=== PATIENT | female | born 1955 | race Caucasian/White ===

== ENCOUNTER 2022-03-14 06:09 | Inpatient (IN) | payer MEDICARE, MEDICAID ==
[2022-03-14] VITALS (20 sets, daily range): BP systolic 86–185
[~2022-03-14] VITALS: Ht 162.6 cm; Wt 96.6 kg
[2022-03-14] MEDS ORDERED: cefTRIAXone 1 GM IVPB PREMIX 50 ML IV ONE (06:15)
--- NOTE | 2022-03-14 06:18 | NUR ---
RT at bedside.
--- NOTE | 2022-03-14 06:18 | NUR ---
PT BIBA C/O RESP DISTRESS 30 MINS PRIOR TO EMS ARRIVAL. PER MEDICS REPORT PT DESAT TO 70% AND ON MEDICS ARRIVAL STAFF WAS BEING [place]AGG[place] AT [facility] PT ON BVM ON ARRIVAL THRU TRACH. PER STAFF PT WAS VERY ANXIOUS PRIOUS TO RESP DISTRESS. PMH;CHRONIC VENT, DYSPHAGIA, GTUBE, HYPERLIPIDEMIA, ANXIETY DISORDER PT PLACED ON CARDIAC MONITORS ON ARRIVAL, SEEN AND EXAMINE BY ERMD AT BEDSIDE.
--- NOTE | 2022-03-14 06:20 | NUR ---
Patient A/Ox3, bed bound, labored breathing. Patient is visible anxious; RT at bedside providing respitory care. Patient in bed with safety procautions in place and connected to monitor. ER MD Ziegler notified.
--- NOTE | 2022-03-14 06:20 | NUR ---
# 22 gauge angiocath placed to right hand. Use of asceptic technique. Opsite placed over site. Blood return noted. Blood for lab drawn from site. Flushed with 10 cc of normal saline. No evidence of infiltration noted. Patient tolerated well.
[2022-03-14] MEDS ORDERED: ALBUTEROL SULFATE 0.083% 2.5 MG/3 ML VIAL.NEB INH ONE ×2 (06:22→06:45)
[2022-03-14 06:45] LABS: BASOPHILS % (AUTO) 0.4 % (0.0-2.0); EOSINOPHILS # (AUTO) 0.6 K/uL (0.0-0.4); EOSINOPHILS % (AUTO) 6.1 % (0.0-4.0); HEMATOCRIT 35.9 % (36-48); HEMOGLOBIN 11.3 g/dL (12.0-16.0); LYMPHOCYTES # (AUTO) 3.3 K/uL (1.0-5.5); LYMPHOCYTES % (AUTO) 34.2 % (20.5-51.5); MEAN CORPUSCULAR HEMOGLOBIN 25 pg (27-31); MEAN CORPUSCULAR HGB CONC 32 % (32-36); MEAN CORPUSCULAR VOLUME 78 fL (79.0-98.0); MONOCYTES # (AUTO) 0.5 K/uL (0.0-1.0); MONOCYTES % (AUTO) 5.2 % (1.7-9.3); NEUTROPHILS # (AUTO) 5.2 K/uL (1.8-7.7); NEUTROPHILS % (AUTO) 54.1 % (40.0-70.0); PLATELET COUNT (AUTO) 312 K/uL (130-430); RED CELL DISTRIBUTION WIDTH 18.2 % (9.0-15.0); WHITE BLOOD COUNT (AUTO) 9.7 K/uL (4.8-10.8)
[2022-03-14] MEDS ORDERED: DIPHENHYDRAMINE INJ 50 MG/ML VIAL IVP ONE (06:45)
[2022-03-14 06:48] LABS: ANION GAP 7 (5-15); CALCIUM 9.4 mg/dL (8.4-11.0); CHLORIDE 98 mmol/L (98-107); CREATININE 0.93 mg/dL (0.55-1.30); GLUCOSE 221 mg/dL (70-99); UREA NITROGEN, BLOOD 19 mg/dL (8-21)
[2022-03-14] MEDS ORDERED: LORazepam 2 MG/ML VIAL IVP ONE ×2 (07:00→07:30)
--- NOTE | 2022-03-14 07:00 | NUR ---
Patient states "I want a shot, I have too much anxiety." ER MD Ziegler notified; order given for 1mg Ativan.
[2022-03-14 07:09] LABS: ALANINE AMINOTRANSFERASE 37 U/L (12-78); ALBUMIN 3.2 g/dL (3.4-4.8); ASPARTATE AMINOTRANSFERASE 17 U/L (10-37); TOTAL BILIRUBIN 0.1 mg/dL (0.0-1.0)
--- NOTE | 2022-03-14 07:14 | NUR ---
Report given to ELLA Miranda who will assume care at this time.
--- NOTE | 2022-03-14 07:15 | NUR ---
RECEIVED PT FROM ELLA GUZMAN. ASSUMED CARE.
--- NOTE | 2022-03-14 07:29 | NUR ---
REPORTED TO DR. SALDANA PT IS DISPONDENT, DR. SALDANA ASSESSED PT AND STATED TO HOLD SECOND DOSE OF ATIVAN IVP.
[2022-03-14 07:32] LABS: GFR AFRICAN AMERICAN 77 mL/min (>90)
--- NOTE | 2022-03-14 07:40 | NUR ---
PT PLACE ON MOBILE MONITOR AND TAKEN TO CT SCAN ACCOMPAINIED BY THIS RN.
--- NOTE | 2022-03-14 07:50 | NUR ---
PT PLACED ON C/T SCAN, R/T AT BEDSIDE NOTED HR IN THE 40s. NO PULSE FELT, CODE BLUE INITIATED.
--- NOTE | 2022-03-14 07:51 | NUR ---
0751: DR. SALDANA AT BEDSIDE, PT PLACED ON DEFIBRILLATOR MONITOR, ASYSTOLE NOTED, EPINEPHERINE 1MG GIVEN, LINE FLUSHED, CPR CONTINUED. 0753: BICARB IVP GIVEN AT THIS TIME. 0754: PULSE CHECK SHOWS NO PULSE, CPR CONTINUED EPINEPHERINE 1MG IVP GIVEN AND LINE FLUSHED WITH 10ML NS. 0757: EPINEPHERINE 1MG IVP GIVEN AND LINE FLUSHED WITH 10ML NS. 0759: EPINEPHERINE 1MG IVP GIVEN AND LINE FLUSHED WITH 10ML NS. 0800: PULSE CHECK SHOWS PT IS ASYSTOLE, CPR CONTINUED. 0802: EPINEPHERINE 1MG IVP GIVEN AND LINE FLUSHED WITH 10ML NS. 0803: PULSE CHECK SHOWS PT IS ASYSTOLE, CPR CONTINUED. 0805: PULSE CHECK SHOWS RHYTHM NOTED. PT SINUS TACH HR 100.
[2022-03-14] MEDS ORDERED: iohexoL 350 mgI/mL, 100 ML INFUS..BTL IV ONE (08:13)
--- NOTE | 2022-03-14 09:03 | NUR ---
COVID AND MRSA SWABS OBTAINED AND SENT TO LAB 09:00.
[2022-03-14] MEDS ORDERED: LIDOCAINE 2%, 20 ML MDV ONE (09:13)
--- NOTE | 2022-03-14 09:30 | NUR ---
CT SCAN SHOWS BILATERAL PNEUMOTHORAX. DR. SALDANA AT BEDSIDE AND PREFORMED BILATERAL CHEST TUBE PLACEMENT, BOTH SITE CONNECTED TO CHEST TUBE UNIT WITH 20MMHG CONTINUOUS SUCTION APPLIED. CHEST TUBES SITED CLEANSED WITH CLORHEXIDINE, COVERED WITH VASELINE GAUZE , THEN OCCLUSIVE DRESSINGS PLACED. DRESSINGS CDI. DR. CUMMINGS ORDERED PT'S PEEP BE PLACED A ZERO. 2 HEMOSTATS, VASELINE GAUZE, OCCLUSIVE DRESSING, AND STERILE WATER PLACED AT BEDSIDE.
--- NOTE | 2022-03-14 10:10 | NUR ---
TRANSFERRED PATIENT TO CT. 0750 CODE BLUE CALLED. 0806 ROSC. BAG[address]ED PATIENT DURING CT PROCEDURE. 0855 TRANSFERRED PATIENT BACK TO ER. PATIENT BACK ON VENT SETTINGS WITH AC25, 300, PEEP +5, FIO2 100% PER MD SALDANA DUE TO BILATERAL PNEUMOTHORAX. SPO2 76%, HR 96. PLACED CHEST TUBE. 1010 CHANGED VT TO 450ML PER MD SALDANA. 1100 CHANGED TO NO PEEP AC20 PER MD CUMMINGS. WILL CONTINUE TO MONITOR PATIENT.
--- NOTE | 2022-03-14 10:15 | NUR ---
PT MOON CATH REMOVED, 10ML NS REMOVED FOR BALOON. SITE CLEANSED, NEW 16 FR MOON CATH PLACED. 10ML NS PLACED IN BALLOON. 50ML CLOUDY URINE NOTED.
--- NOTE | 2022-03-14 10:30 | NUR ---
EARL OBTAINED AND RESULTS GIVEN TO DR. CUMMINGS.
[2022-03-14] MEDS ORDERED: NOREPINEPHRINE BITARTRATE 4 MG in NS 246 ML IV PRN ×2 (10:45→11:32)
[2022-03-14] MEDS ORDERED: PIPERACILLIN/TAZO 3.375 GM in NS 50 ML IV ONE (10:45)
[2022-03-14] MEDS: NACL 0.9% 1,000 ML IV SCH ×2 (11:12→17:43)
[2022-03-14] MEDS ORDERED: PIPERACILLIN/TAZOBACTAM 3.375 GM/VIAL (ZOSYN) IV ONE (11:19)
[2022-03-14 11:48] LABS: PROTHROMBIN TIME 9.9 SECS (9.5-12.5)
[2022-03-14] MEDS ORDERED: IPRATROPIUM/ALBUTEROL SULFATE 3 ML AMPUL.NEB (DUONEB) INH PRN (12:00)
[2022-03-14] MEDS ORDERED: FAMOTIDINE PF 20 MG/2 ML VIAL IVP ONE (12:00)
--- NOTE | 2022-03-14 12:10 | NUR ---
PT B/B MATTIERMERLE FROM ED @1145 WITH VENT TO TRACH. AC/VC 20-450-100%-0. PT WAS TOTALLY COMATOSE, NO RESPONSE TO ANY STIMULI. PT WAS CODED ED X 1. PT HAS BILATERAL CHEST TUBE CONNECTED TO WALL LOW SUCTION. SEAL WERE BROKEN. CHEST TUBE WERE RESEALED WITH ZEOFORM DRESSING BILATERALLY. NS0.9% RUNNING @150ML/HR. NO URINE OUTPUT. FC IS ON BUT EMPTY.
[2022-03-14] MEDS: METHYLPREDNISOLONE SOD SUCC 40 MG/ML VIAL IVP SCH ×2 (12:55→17:44)
[2022-03-14] MEDS: PIPERACILLIN/TAZO 3.375/DEX-IS 50 ML IV SCH ×2 (12:56→17:44)
--- NOTE | 2022-03-14 13:07 | NUR ---
LAB CALLED TO REPORT [id number] AND [id number]@[phone]. DR. SANTANA WAS PAGED BY CHARGE NURSE JESSENIA RN @0310. TRAVEL COORDINATOR DIDN'T CALL BACK YET. CROSSBAR FRAME WIRER DR. PETERS CAME TO ASSESS PT @1383.
[2022-03-14] MEDS: AZITHROMYCIN 500 MG in NS 250 ML IV SCH (13:25)
--- NOTE | 2022-03-14 14:08 | NUR ---
PT'S DAUGHTER JOSE DAVID DE LEON WAS CALLED. PICC INSERTION CONSENT OBTAINED. JONELLE JARAMILLO WITNESSED WITH IT. PER DAUGHTER PT STILL IN FULL CODE. DAUGHTER PHONE ALSO UPDATED TO COMPUTER.
--- NOTE | 2022-03-14 15:15 | NUR ---
TITRATED FIO2 DOWN TO 80%. SPO2 96%, HR 99.
[2022-03-14] MEDS: IPRATROPIUM/ALBUTEROL SULFATE 3 ML AMPUL.NEB (DUONEB) INH SCH ×2 (15:17→19:32)
--- NOTE | 2022-03-14 16:34 | NUR ---
DAUGHTER JOSE ADVID MOISES CAME TO VISIT PT. PT'S SITUATION UPDATED.
--- NOTE | 2022-03-14 17:15 | NUR ---
FLOW SPECIALIST DR. SHIPLEY NEVER CALLED BACK. FAN SAL ASKED AGAIN TO CALL.
[2022-03-14 17:53] LABS: BILIRUBIN,URINE NEGATIVE (NEGATIVE); BLOOD, URINE 2+ (NEGATIVE); CLARITY/URINE CLOUDY (CLEAR); COLOR,URINE YELLOW (YELLOW); GLUCOSE,URINE NEGATIVE (NEGATIVE); KETONES,URINE NEGATIVE (NEGATIVE); LEUKOCYTE ESTERASE ,URINE NEGATIVE (NEGATIVE); NITRITE, URINE NEGATIVE (NEGATIVE); PH,URINE 5.5 (5.0-8.0); PROTEIN URINE 2+ (NEGATIVE); UROBILINOGEN,URINE 0.2 (0.2-1.0)
[2022-03-14] MEDS ORDERED: cloNIDine HCL 0.1 MG TABLET PO PRN (18:00)
[2022-03-14 18:12] LABS: BACTERIA,URINE None Seen /HPF (None Seen); HYALINE CASTS, URINE 0-10 /LPF (None Seen); MUCUS,URINE None Seen /LPF (None Seen); URINE AMORPHOUS URATE 2+ /HPF (None Seen)
--- NOTE | 2022-03-14 18:23 | NUR ---
DR. CUMMINGS WAS CALLED. LASIX 40MG IVP ORDERED AND GIVEN FOR DECREASED URINE OUTPUT AND HIGH BP. 185/90 WELL CLONIDINE 0.1MG PO Q2H PRN. Addendum: 03/14/22 at 1826 by [facility], RN RN TROP POSITIVE ALSO REPORTED TO DR. CUMMINGS. NOW NEW ORDER. PER DR. WONG, PT GONE THROUGH THE COMPRESSION, SO THAT TROP LEVEL INCREASED.
[2022-03-14] MEDS ORDERED: FUROSEMIDE 40 MG/4 ML VIAL IVP ONE (18:30)
--- NOTE | 2022-03-14 19:43 | NUR ---
RECEIVED PATIENT IN VENT VIA ETT, SETTING AC/20 450 80%FIO2, PATIENT IS DISTRESS, BREATHING HARD, START PROPOFOL FOR SEDATION PER DR CUMMINGS'S ORDER, SINUS RYHTHM ON THE MONITOR, BILATERAL CHEST TUBE CONNECTED TO WALL LOW SUCTION , GT IS CLAMPED, WILL CONTINUE TO MONITOR.
[2022-03-14] MEDS: FAMOTIDINE PF 20 MG/2 ML VIAL IVP SCH (20:06)
[2022-03-14] MEDS: PROPOFOL DRIP 100 ML IV PRN (20:06)
--- NOTE | 2022-03-14 22:50 | NUR ---
seen by dr Willams at bedside, updated him patient's condition. no new order noted, patient is awake, the eyes no tracking, not follow any commend. pupils still dilated and fix 4.5 mm. will continue to monitor.
[2022-03-15] VITALS (32 sets, daily range): BP systolic 91–164
--- NOTE | 2022-03-15 | NUR ---
PICC LINE INSERTED BY PICC LINE NURSE AT [facility], CXR DONE , OK TO USE PER PICC LINE NURSE.
[2022-03-15] MEDS: IPRATROPIUM/ALBUTEROL SULFATE 3 ML AMPUL.NEB (DUONEB) INH SCH ×5 (00:12→15:28)
[2022-03-15] MEDS: NACL 0.9% 1,000 ML IV SCH (00:46)
[2022-03-15] MEDS: PROPOFOL DRIP 100 ML IV PRN ×2 (00:50→21:45)
--- NOTE | 2022-03-15 04:00 | NUR ---
TURN AND REPOSITION Q2H TO KEEP SKIN CLEAN AND DRY ,BMX1,GOOD SKIN CARE GIVEN, CHG BATH PROVIDED. ORAL HYGENE DONE. WILL CONTINUE TO MONITOR.
[2022-03-15] MEDS: METHYLPREDNISOLONE SOD SUCC 40 MG/ML VIAL IVP SCH ×4 (05:31→21:53)
[2022-03-15] MEDS: PIPERACILLIN/TAZO 3.375/DEX-IS 50 ML IV SCH ×4 (05:33→17:46)
[2022-03-15 07:05] LABS: ALBUMIN 2.7 g/dL (3.4-4.8); CALCIUM 8.1 mg/dL (8.4-11.0); CREATININE 1.1 mg/dL (0.55-1.30); PHOSPHORUS 4.5 mg/dL (2.7-4.5); TOTAL BILIRUBIN 0.4 mg/dL (0.0-1.0)
[2022-03-15 07:49] LABS: BASOPHILS % (AUTO) 0.2 % (0.0-2.0); HEMATOCRIT 30.8 % (36-48); LYMPHOCYTES # (AUTO) 1.4 K/uL (1.0-5.5); LYMPHOCYTES % (AUTO) 12.2 % (20.5-51.5); MEAN CORPUSCULAR HEMOGLOBIN 25 pg (27-31); MEAN CORPUSCULAR HGB CONC 32 % (32-36); MEAN CORPUSCULAR VOLUME 77 fL (79.0-98.0); MONOCYTES # (AUTO) 1.1 K/uL (0.0-1.0); MONOCYTES % (AUTO) 9.8 % (1.7-9.3); NEUTROPHILS # (AUTO) 8.9 K/uL (1.8-7.7); NEUTROPHILS % (AUTO) 77.8 % (40.0-70.0); PLATELET COUNT (AUTO) 250 K/uL (130-430); RED BLOOD CELL COUNT(AUTO) 4.02 MIL/uL (4.2-6.2); RED CELL DISTRIBUTION WIDTH 18.4 % (9.0-15.0); WHITE BLOOD COUNT (AUTO) 11.5 K/uL (4.8-10.8)
[2022-03-15] MEDS: FAMOTIDINE PF 20 MG/2 ML VIAL IVP SCH ×2 (08:41→21:55)
[2022-03-15] MEDS: levETIRAcetam 500 MG in NS 100 ML IV SCH ×2 (08:42→21:52)
--- NOTE | 2022-03-15 08:53 | NUR ---
MD Mora at bedside, new orders obtained and transcribed. Per he has ordered spontaneous awakening trials.
[2022-03-15] MEDS ORDERED: *LOVENOX 1MG/KG Q24H/PHARMACY XX ONE (09:00)
[2022-03-15] MEDS: ENOXAPARIN SODIUM 100 MG/ML SYRINGE SUBCUT SCH (09:46)
[2022-03-15] MEDS: AZITHROMYCIN 500 MG in NS 250 ML IV SCH (13:28)
--- NOTE | 2022-03-15 13:45 | NUR ---
RT NOTES Abnormal breathing pattern noted, rn notified
--- NOTE | 2022-03-15 16:04 | NUR ---
Dietitian Recommendations * Consider: Nepro @ 35mL/hr (goal), Prosource TID, FWF per physician Provides daily (EN, Propofol, PS TID): 2118 kcals, 113g PRO, 610mL Meets: 97% estimated kcal needs, 104% upper PRO needs Please refer to nutrition assessment for details, thanks! CC, MPH, RDN
--- NOTE | 2022-03-15 17:54 | NUR ---
MOON CATHETER BAG CHANGED TO URINE METER MOON CATHETER BAG PER ICU PROTOCOL.
--- NOTE | 2022-03-15 19:00 | NUR ---
CARE ENDORSED TO SAMANTHA JARAMILLO. PT VSS. NAD NOTED. PROPOFOL @40CC/HR TO PICC ESTEVAN. CALM AND COOPERATIVE. END OF CARE.
[2022-03-16] VITALS (34 sets, daily range): BP systolic 90–142
[2022-03-16] MEDS: IPRATROPIUM/ALBUTEROL SULFATE 3 ML AMPUL.NEB (DUONEB) INH SCH ×6 (00:45→23:30)
[2022-03-16] MEDS ORDERED: MORPHINE SULFATE IN 0.9 % NACL 100 ML IV ONE (03:15)
--- NOTE | 2022-03-16 03:15 | NUR ---
Patient continues to use accessory muscles during inspiratory process with short and forceful expiratory. Diprivan was increased from 40 mcg/k/min to 50 mcg/k/min without improvement. Dr Scott was contacted and orders received to start Morphine drip added to current sedation. will titrate as per protocol.
[2022-03-16] MEDS: PIPERACILLIN/TAZO 3.375/DEX-IS 50 ML IV SCH ×4 (05:50→19:12)
[2022-03-16 06:29] LABS: BASOPHILS % (AUTO) 0.3 % (0.0-2.0); HEMATOCRIT 29.2 % (36-48); HEMOGLOBIN 9.4 g/dL (12.0-16.0); LYMPHOCYTES # (AUTO) 1.3 K/uL (1.0-5.5); LYMPHOCYTES % (AUTO) 10.4 % (20.5-51.5); MEAN CORPUSCULAR HEMOGLOBIN 25 pg (27-31); MEAN CORPUSCULAR HGB CONC 32 % (32-36); MEAN CORPUSCULAR VOLUME 76 fL (79.0-98.0); MONOCYTES % (AUTO) 7.9 % (1.7-9.3); NEUTROPHILS # (AUTO) 10.5 K/uL (1.8-7.7); NEUTROPHILS % (AUTO) 81.4 % (40.0-70.0); PLATELET COUNT (AUTO) 242 K/uL (130-430); RED BLOOD CELL COUNT(AUTO) 3.83 MIL/uL (4.2-6.2); RED CELL DISTRIBUTION WIDTH 18.9 % (9.0-15.0); WHITE BLOOD COUNT (AUTO) 12.9 K/uL (4.8-10.8)
[2022-03-16 06:52] LABS: CREATININE 0.94 mg/dL (0.55-1.30)
[2022-03-16 07:09] LABS: ALBUMIN 2.7 g/dL (3.4-4.8); THYROID STIMULATING HORMONE 0.67 uIu/mL (0.36-3.74); TOTAL BILIRUBIN 0.3 mg/dL (0.0-1.0)
[2022-03-16] MEDS: PROPOFOL DRIP 100 ML IV PRN (07:45)
[2022-03-16] MEDS ORDERED: POTASSIUM CHLORIDE 20 MEQ/PKT PACKET PO ONE (08:00)
[2022-03-16] MEDS: FAMOTIDINE PF 20 MG/2 ML VIAL IVP SCH ×2 (10:13→21:53)
[2022-03-16] MEDS: ENOXAPARIN SODIUM 100 MG/ML SYRINGE SUBCUT SCH (10:13)
[2022-03-16] MEDS: METHYLPREDNISOLONE SOD SUCC 40 MG/ML VIAL IVP SCH ×2 (10:14→21:55)
[2022-03-16] MEDS: levETIRAcetam 500 MG in NS 100 ML IV SCH ×2 (10:15→21:46)
[2022-03-16] MEDS: NACL 0.9% 1,000 ML IV SCH ×2 (10:18→18:02)
--- NOTE | 2022-03-16 11:34 | NUR ---
RT NOTES FIO2 TO 0.90. @1159 SAT 94%. WILL CONT. TO MONITOR PT.
[2022-03-16] MEDS ORDERED: METOCLOPRAMIDE HCL 10 MG/2 ML VIAL IVP ONE (12:15)
[2022-03-16] MEDS: DEXMEDETOMIDINE HCL 400 MCG in NS 96 ML IV PRN (12:40)
--- NOTE | 2022-03-16 13:45 | NUR ---
RT NOTES Found FIO2 @100%, done by rn due to low saturation.
[2022-03-16] MEDS: MORPHINE SULFATE IN 0.9 % NACL 100 ML IV PRN (14:33)
[2022-03-16] MEDS: AZITHROMYCIN 500 MG in NS 250 ML IV SCH (14:34)
[2022-03-16] MEDS ORDERED: NOREPINEPHRINE 4 MG/4 ML VIAL IV ONE (15:12)
--- NOTE | 2022-03-16 15:25 | NUR ---
RT NOTES Sat 99%, titrated FIO2 to 0.90. will monitor pt
--- NOTE | 2022-03-16 19:29 | NUR ---
UPDATE GIVEN TO SON AT BEDSIDE AND DAUGHTER VIA TELEPHONE. PATIENT HAD GOLD RING ON RIGHT THUMB THAT NEEDED TO BE REMOVED DUE TO SWELLING. INTACT RING SENT HOME WITH SON. BRAD RN AT BEDSIDE TO WITNESS TRANSFER OF PATIENT BELONGING TO SON.
--- NOTE | 2022-03-16 19:30 | NUR ---
Son at bedside. Yellow ring given to take home witnessed by day RN Eliza.
--- NOTE | 2022-03-16 20:24 | NUR ---
Dr Willams paged to notify of KUB results. Updated on UOP and VSS.
[2022-03-16] MEDS: METOCLOPRAMIDE HCL 10 MG/2 ML VIAL IVP SCH (21:45)
[2022-03-17] VITALS (32 sets, daily range): BP systolic 96–152
[2022-03-17] MEDS: PIPERACILLIN/TAZO 3.375/DEX-IS 50 ML IV SCH ×5 (00:31→23:27)
[2022-03-17] MEDS: IPRATROPIUM/ALBUTEROL SULFATE 3 ML AMPUL.NEB (DUONEB) INH SCH ×4 (03:27→14:16)
[2022-03-17] MEDS: NACL 0.9% 1,000 ML IV SCH ×2 (05:08→23:20)
[2022-03-17] MEDS: METOCLOPRAMIDE HCL 10 MG/2 ML VIAL IVP SCH ×3 (05:08→20:21)
[2022-03-17 07:13] LABS: BASOPHILS % (AUTO) 0.2 % (0.0-2.0); EOSINOPHILS % (AUTO) 0.2 % (0.0-4.0); HEMATOCRIT 28.3 % (36-48); HEMOGLOBIN 9.1 g/dL (12.0-16.0); LYMPHOCYTES # (AUTO) 1.3 K/uL (1.0-5.5); LYMPHOCYTES % (AUTO) 11.9 % (20.5-51.5); MEAN CORPUSCULAR HEMOGLOBIN 25 pg (27-31); MEAN CORPUSCULAR HGB CONC 32 % (32-36); MEAN CORPUSCULAR VOLUME 77 fL (79.0-98.0); MONOCYTES # (AUTO) 0.7 K/uL (0.0-1.0); MONOCYTES % (AUTO) 6.7 % (1.7-9.3); NEUTROPHILS # (AUTO) 8.5 K/uL (1.8-7.7); PLATELET COUNT (AUTO) 233 K/uL (130-430); RED BLOOD CELL COUNT(AUTO) 3.66 MIL/uL (4.2-6.2); RED CELL DISTRIBUTION WIDTH 18.5 % (9.0-15.0); WHITE BLOOD COUNT (AUTO) 10.5 K/uL (4.8-10.8)
[2022-03-17 07:40] LABS: CALCIUM 7.9 mg/dL (8.4-11.0); CREATININE 0.91 mg/dL (0.55-1.30)
[2022-03-17 07:46] LABS: ALBUMIN 2.6 g/dL (3.4-4.8)
[2022-03-17] MEDS: ENOXAPARIN SODIUM 40 MG/0.4 ML SYRINGE SUBCUT SCH (09:00)
[2022-03-17] MEDS: METHYLPREDNISOLONE SOD SUCC 40 MG/ML VIAL IVP SCH ×2 (09:00→20:20)
[2022-03-17] MEDS: levETIRAcetam 500 MG in NS 100 ML IV SCH ×2 (09:00→20:24)
[2022-03-17] MEDS: FAMOTIDINE PF 20 MG/2 ML VIAL IVP SCH ×2 (09:01→20:21)
--- NOTE | 2022-03-17 10:10 | NUR ---
NOTIFIED BY LAB, BMP RESULTS INCORRECT, WILL RESULT CORRECT RESULTS ON PT. WILL NOTIFY PHYSICIAN PER PROTOCOL. CHARGE NURSE NOTIFIED.
[2022-03-17] MEDS: DEXMEDETOMIDINE HCL 400 MCG in NS 96 ML IV PRN (12:13)
[2022-03-17] MEDS: AZITHROMYCIN 500 MG in NS 250 ML IV SCH (13:15)
[2022-03-17] MEDS ORDERED: POTASSIUM CHLORIDE 20 MEQ/PKT PACKET GT ONE (17:15)
--- NOTE | 2022-03-17 17:30 | NUR ---
MOON CATH CLOGGED, UNABLE TO FLUSH WITH STERILE SALINE. MOON DISCONTINUED, NEW CATHETER INSERTED MAINTAINING STERILE TECHNIQUE PER HOSPITAL POLICY. DK YELLOW URINE OUT POST MOON INSERTION
[2022-03-17] MEDS ORDERED: DOCUSATE SODIUM 100 MG/10 ML UDC PO ONE (18:00)
--- NOTE | 2022-03-17 19:20 | NUR ---
Opening notes Received report from endorsing morning RN Eve for continuity of care. Patient is lying in bed with IVF NS @ TKO, morphine drip @ 2 mg/hr, and precedex drip @ 0.3 mcg/kg/hr. Patient's vital signs blood pressure 136/88, heart rate 87, respirations 21, and SPO2 94% on ventilator. Ventilator settings AC 20, tidal volume 450, FIO2 90%, and peep of 5. Carney catheter is in place draining to gravity. Bilateral chest tube is clean and intact and no air leak noted. Bed is locked and in lowest position, fall and safety precautions is in place.
[2022-03-17] MEDS: MORPHINE SULFATE IN 0.9 % NACL 100 ML IV PRN (20:24)
[2022-03-18] VITALS (29 sets, daily range): BP systolic 95–159
[2022-03-18] MEDS: DEXMEDETOMIDINE HCL 400 MCG in NS 96 ML IV PRN ×5 (01:15→20:54)
--- NOTE | 2022-03-18 03:31 | NUR ---
Called Dr. Scott due to patient's condition. Patient uses her accessory muscles to breathe. Received orders, please check orders.
[2022-03-18] MEDS: METOCLOPRAMIDE HCL 10 MG/2 ML VIAL IVP SCH ×3 (03:40→19:57)
[2022-03-18] MEDS: PROPOFOL DRIP 100 ML IV PRN ×2 (03:41→17:54)
[2022-03-18] MEDS: IPRATROPIUM/ALBUTEROL SULFATE 3 ML AMPUL.NEB (DUONEB) INH SCH ×6 (05:12→23:06)
[2022-03-18] MEDS: PIPERACILLIN/TAZO 3.375/DEX-IS 50 ML IV SCH ×4 (05:25→23:30)
[2022-03-18] MEDS: MORPHINE SULFATE IN 0.9 % NACL 100 ML IV PRN (06:19)
[2022-03-18 07:13] LABS: BASOPHILS % (AUTO) 0.2 % (0.0-2.0); EOSINOPHILS % (AUTO) 0.1 % (0.0-4.0); HEMATOCRIT 30.3 % (36-48); HEMOGLOBIN 9.4 g/dL (12.0-16.0); LYMPHOCYTES # (AUTO) 1.5 K/uL (1.0-5.5); LYMPHOCYTES % (AUTO) 13.3 % (20.5-51.5); MEAN CORPUSCULAR HEMOGLOBIN 24 pg (27-31); MEAN CORPUSCULAR HGB CONC 31 % (32-36); MEAN CORPUSCULAR VOLUME 78 fL (79.0-98.0); MONOCYTES # (AUTO) 0.9 K/uL (0.0-1.0); NEUTROPHILS # (AUTO) 9.1 K/uL (1.8-7.7); NEUTROPHILS % (AUTO) 78.4 % (40.0-70.0); PLATELET COUNT (AUTO) 237 K/uL (130-430); RED BLOOD CELL COUNT(AUTO) 3.89 MIL/uL (4.2-6.2); RED CELL DISTRIBUTION WIDTH 18.6 % (9.0-15.0); WHITE BLOOD COUNT (AUTO) 11.6 K/uL (4.8-10.8)
--- NOTE | 2022-03-18 07:15 | NUR ---
Opening Received report on pt. Pt trach to vent, obtunded, does not follow commands, in no signs of pain or distress. On diprivan, morphine, precedex drip, and TKO IVF. Bilateral chest tubes in place. Gtube with tube feeding. Carney in place draining urine to gravity.
[2022-03-18 07:24] LABS: ALBUMIN 2.7 g/dL (3.4-4.8); CALCIUM 8.7 mg/dL (8.4-11.0); CREATININE 0.77 mg/dL (0.55-1.30); PHOSPHORUS 3.7 mg/dL (2.7-4.5)
[2022-03-18 08:09] LABS: TOTAL BILIRUBIN 0.6 mg/dL (0.0-1.0)
[2022-03-18] MEDS: levETIRAcetam 500 MG in NS 100 ML IV SCH ×2 (08:25→21:03)
[2022-03-18] MEDS: METHYLPREDNISOLONE SOD SUCC 40 MG/ML VIAL IVP SCH ×2 (08:25→21:04)
[2022-03-18] MEDS: FAMOTIDINE PF 20 MG/2 ML VIAL IVP SCH ×2 (08:25→21:04)
[2022-03-18] MEDS: DOCUSATE SODIUM 100 MG/10 ML UDC PO SCH (08:25)
[2022-03-18] MEDS: POTASSIUM CHLORIDE 20 MEQ/PKT PACKET GT SCH (08:27)
[2022-03-18] MEDS: ENOXAPARIN SODIUM 40 MG/0.4 ML SYRINGE SUBCUT SCH (08:27)
[2022-03-18] MEDS: NACL 0.9% 1,000 ML IV SCH (10:00)
--- NOTE | 2022-03-18 12:30 | NUR ---
Bath given, noted leakage from left chest tube site, reinforced dressing. Pt tolerated well.
[2022-03-18] MEDS: AZITHROMYCIN 500 MG in NS 250 ML IV SCH (13:00)
--- NOTE | 2022-03-18 19:00 | NUR ---
Opening notes Received report from endorsing morning ELLA William for continuity of care. Patient is lying in bed with IVF NS @ TKO, morphine @ 5 mg/hr, precedex @ 1 mcg/kg/hr, and diprivan @ 10 mcg/kg/min. Patient's vital signs blood pressure 115/68, heart rate 67, respirations 20, and SPO2 97% on ventilator. Ventilator settings AC 20, tidal volume 450, FIO2 95%, and peep of 5. Bilateral chest tube is draining, no crepitus and no air leak noted. Carney catheter is in place draining to gravity yellow in color. Bed is locked and in lowest position, fall and safety precautions is in place.
--- NOTE | 2022-03-18 19:10 | NUR ---
Closing Pt in no distress or signs of pain. Endorsed plan of care to RN.
[2022-03-19] VITALS (32 sets, daily range): BP systolic 96–137
[2022-03-19] MEDS: MORPHINE SULFATE IN 0.9 % NACL 100 ML IV PRN ×2 (00:56→16:34)
[2022-03-19] MEDS: DEXMEDETOMIDINE HCL 400 MCG in NS 96 ML IV PRN ×2 (00:57→04:28)
[2022-03-19] MEDS: METOCLOPRAMIDE HCL 10 MG/2 ML VIAL IVP SCH ×3 (03:37→17:55)
[2022-03-19] MEDS: IPRATROPIUM/ALBUTEROL SULFATE 3 ML AMPUL.NEB (DUONEB) INH SCH ×6 (03:45→23:00)
[2022-03-19] MEDS: PROPOFOL DRIP 100 ML IV PRN ×3 (05:19→19:11)
[2022-03-19] MEDS: PIPERACILLIN/TAZO 3.375/DEX-IS 50 ML IV SCH ×3 (05:24→17:56)
[2022-03-19 07:37] LABS: BASOPHILS % (AUTO) 0.3 % (0.0-2.0); EOSINOPHILS # (AUTO) 0.1 K/uL (0.0-0.4); EOSINOPHILS % (AUTO) 1.3 % (0.0-4.0); HEMATOCRIT 26.6 % (36-48); HEMOGLOBIN 8.6 g/dL (12.0-16.0); LYMPHOCYTES # (AUTO) 2.2 K/uL (1.0-5.5); LYMPHOCYTES % (AUTO) 21.8 % (20.5-51.5); MEAN CORPUSCULAR HEMOGLOBIN 25 pg (27-31); MEAN CORPUSCULAR HGB CONC 32 % (32-36); MEAN CORPUSCULAR VOLUME 77 fL (79.0-98.0); MONOCYTES % (AUTO) 9.8 % (1.7-9.3); NEUTROPHILS # (AUTO) 6.6 K/uL (1.8-7.7); NEUTROPHILS % (AUTO) 66.8 % (40.0-70.0); PLATELET COUNT (AUTO) 200 K/uL (130-430); RED BLOOD CELL COUNT(AUTO) 3.44 MIL/uL (4.2-6.2); RED CELL DISTRIBUTION WIDTH 18.5 % (9.0-15.0); WHITE BLOOD COUNT (AUTO) 9.9 K/uL (4.8-10.8)
[2022-03-19 07:59] LABS: ALBUMIN 2.4 g/dL (3.4-4.8); CALCIUM 8.5 mg/dL (8.4-11.0); CREATININE 0.74 mg/dL (0.55-1.30); PHOSPHORUS 3.5 mg/dL (2.7-4.5); TOTAL BILIRUBIN 0.4 mg/dL (0.0-1.0)
--- NOTE | 2022-03-19 08:00 | NUR ---
NAHEED QUACH REGISTRY NURSE IS IN CHARGE OF THIS PT, TF RESIDUAL HIGH, RUN TF AT 10CC FOR NOW-MD ORDERED REGLAN-PT OPENS EYES BUT NOT FOILLOWING COMMANDS -OFF PRECIDEX/THEN WAS DCD BY MD//PT AFEBGRILE/X 2 CHEST TUBES, NO LEAKS PRESENT, SCFANT DRAINAGE/PT IN ZERO DISTRESS ON VENT, FIO2 TITRATED FROM 90 TO 85%//MW
[2022-03-19] MEDS: METHYLPREDNISOLONE SOD SUCC 40 MG/ML VIAL IVP SCH (09:41)
[2022-03-19] MEDS: FAMOTIDINE PF 20 MG/2 ML VIAL IVP SCH (09:42)
[2022-03-19] MEDS: ENOXAPARIN SODIUM 40 MG/0.4 ML SYRINGE SUBCUT SCH (09:42)
[2022-03-19] MEDS: DOCUSATE SODIUM 100 MG/10 ML UDC PO SCH (09:42)
[2022-03-19] MEDS: POTASSIUM CHLORIDE 20 MEQ/PKT PACKET GT SCH (09:43)
[2022-03-19] MEDS: levETIRAcetam 500 MG in NS 100 ML IV SCH (09:43)
[2022-03-19] MEDS ORDERED: KCL 40 mEq in 100 mL (PREMIX) 100 ML IV ONE (09:45)
[2022-03-19] MEDS: D5/0.45 NS 1,000 ML IV SCH (11:10)
--- NOTE | 2022-03-19 12:00 | NUR ---
PT ABD BREATHING, BACK UP TO 95% FIO2 FOR NOW/MW
--- NOTE | 2022-03-19 14:00 | NUR ---
PT FAMILY AGREED TO DNR/DNI PER MD, PAPERWORK IN CHART/PT IN ZERO DISTRESS, FIO2 BACK TO 90%-TF RUNNING AT 20CCF/H NOW, ZERO TF RESIDUALS//MW
[2022-03-19] MEDS ORDERED: METOCLOPRAMIDE HCL 10 MG/2 ML VIAL ONE (14:12)
--- NOTE | 2022-03-19 17:00 | NUR ---
PT HAD SMALL LIQUID BM IN BED/VERY SMALL///CLEANED PT, TOLERATED WELL///MW
--- NOTE | 2022-03-19 20:04 | NUR ---
Nutrition F/U: Admitting Diagnosis: Full Arrest, Bilateral Pneumothorax Reviewed Pertinent Medical/Surgical Hx Medical Record, FRONT OFFICE HELP Medical History Comment: per EMR: 66y female with PMHx seizure disorder (w/ decreased Keppra dosage last week), chronic hypoxic respiratory failure, COPD, chronic trach to vent, CAD, HTN, h/o IOC, HLD, dysphagia on GTF. Pt presented to ED c/o SOB and had full arrest in ER. Pt reported fever, chills, chest pain then had a seizure in ED. Pt was sent for CT head and coded. S/p chest tubes. Pt now unresponsive and transferred to ICU. Per physician notes, mild PEM noted. Subjective Information: RD rounded to patient room and witnessed patient trach/vent and unresponsive. RD noted TF rate 20mL, below the 40mL TF order. Per RN Darek, patient having high GRV so TF rate lowered. Darek RN reported 20mL GRV at time of visit. Per EMR, GRV has again increased to 250mL. Patient started on Reglan to improve gut motility, RD will continue to monitor tolerance of EN. RD witnessed Propofol infusing at 6.09mL/9.99mcg (Provides 161 additional calories) and IVF infusing at 50mL. RN reports pt had 2 BM last evening. Current Diet Order/Nutrition Support: Nepro @ 40mL/hr + Prosource TID, Free Water Flush: 100mL Q8hr via GT x 3 days Patient/Significant Other Unable To Verbalize Education Provided Not Indicated Pertinent Medications: Reglan, Solumedrol, pepcid, Propofol, piperacillin/tazobactam, morphine, Colace, KCl 20 mEq pkt, D5 1/2NS Pertinent Labs: BG 118 H, BUN 39 H, K+ 3 L, Hgb 8.6 L Height (Feet) 5 feet Height (Inches) 4.00 inches Weight (Pounds) 213 pounds Weight (Calculated Kilograms) 96.715143 kilograms Patient Weight 96.615 kg Body Mass Index 36.56 kg/m2 %IBW 176 Gustavus/Adjusted Body Weight 120#/ 54.5kg Weight Status Obese Gastrointestinal Symptoms Distended abdomen 03/19 per EMR Last BM Mar 18, 2022 x 2 Difficulty With: Chewing Swallowing Usual Diet At Home GTF Skin Integrity Comment: Thomas 11: No wounds/PIs per EMR and FRONT OFFICE HELP 03/15 Current % PO 0% - NPO Estimated Energy Expenditure (kcals/day) 2184 (PSU >30 BMI for critical illness, vent) Estimated Protein Required (g/day) 82-109 (1.5-2 g/kg IBW for criticall illness, BMI >30, vent) Estimated Fluid Required (l/day) per MD d/t COPD Problem/Etiology/Signs/Symptoms * Increased energy and protein expenditure r/t metabolic demands a/e/b estimated nutrient needs for critical illness, mechanical ventilation (On-going) * Swallowing difficulty r/t dysphagia a/e/b GT dependent (On-going) Expected Outcomes/Goals Pt tolerates EN at goal, EN provides >95% estimated nutrient needs, nutrition-related labs trending WNL, skin integrity/weight maintenance, BM q 1-3 days Dietitian Recommendations * Consider adjust EN if GRV does not improve: Jevity 1.5 @ 45mL/hr (goal) + ProSource BID, FWF per MD via GT Provides daily (w/prop, PS): 1961 kcals, 117g PRO, 827mL fluids Meets: 90% est caloric needs, 107% upper PRO est needs * Continue Reglan per MD High Risk: F/U in 2-3days Addendum: 03/19/22 at [address] Entered incorrect formulary: COOPER recommends Vital 1.5 @ 45mL/hr (goal) + ProSource BID, FWF per MD via GT
--- NOTE | 2022-03-19 20:31 | NUR ---
Dietitian Recommendations * Consider adjust EN if GRV does not improve: Vital 1.5 @ 45mL/hr (goal) + ProSource BID, FWF per MD via GT Provides daily (w/prop, PS): 1961 kcals, 117g PRO, 827mL fluids Meets: 90% estimated caloric needs, 107% upper PRO estimated needs * Continue Reglan per MD Please refer to nutrition F/U for details, thanks! CC, MPH, RDN
[2022-03-20] VITALS (37 sets, daily range): BP systolic 105–149
[2022-03-20] MEDS: levETIRAcetam 500 MG in NS 100 ML IV SCH ×3 (02:22→20:44)
[2022-03-20] MEDS: METHYLPREDNISOLONE SOD SUCC 40 MG/ML VIAL IVP SCH ×3 (02:23→20:43)
[2022-03-20] MEDS: FAMOTIDINE PF 20 MG/2 ML VIAL IVP SCH ×3 (02:23→20:43)
[2022-03-20] MEDS: METOCLOPRAMIDE HCL 10 MG/2 ML VIAL IVP SCH ×5 (02:27→23:54)
[2022-03-20] MEDS: PIPERACILLIN/TAZO 3.375/DEX-IS 50 ML IV SCH ×5 (02:27→23:54)
[2022-03-20] MEDS: IPRATROPIUM/ALBUTEROL SULFATE 3 ML AMPUL.NEB (DUONEB) INH SCH ×6 (03:48→23:08)
[2022-03-20] MEDS: D5/0.45 NS 1,000 ML IV SCH (05:44)
[2022-03-20] MEDS: MORPHINE SULFATE IN 0.9 % NACL 100 ML IV PRN (05:51)
[2022-03-20 06:01] LABS: BASOPHILS # (AUTO) 0.1 K/uL (0.0-0.2); BASOPHILS % (AUTO) 0.7 % (0.0-2.0); EOSINOPHILS # (AUTO) 0.1 K/uL (0.0-0.4); EOSINOPHILS % (AUTO) 0.9 % (0.0-4.0); HEMATOCRIT 29.7 % (36-48); HEMOGLOBIN 9.4 g/dL (12.0-16.0); LYMPHOCYTES # (AUTO) 1.2 K/uL (1.0-5.5); LYMPHOCYTES % (AUTO) 7.6 % (20.5-51.5); MEAN CORPUSCULAR HEMOGLOBIN 25 pg (27-31); MEAN CORPUSCULAR HGB CONC 32 % (32-36); MEAN CORPUSCULAR VOLUME 77 fL (79.0-98.0); MONOCYTES # (AUTO) 0.8 K/uL (0.0-1.0); MONOCYTES % (AUTO) 4.6 % (1.7-9.3); NEUTROPHILS # (AUTO) 14.2 K/uL (1.8-7.7); NEUTROPHILS % (AUTO) 86.2 % (40.0-70.0); PLATELET COUNT (AUTO) 261 K/uL (130-430); RED BLOOD CELL COUNT(AUTO) 3.85 MIL/uL (4.2-6.2); RED CELL DISTRIBUTION WIDTH 18.9 % (9.0-15.0); WHITE BLOOD COUNT (AUTO) 16.4 K/uL (4.8-10.8)
[2022-03-20 06:47] LABS: ALBUMIN 2.6 g/dL (3.4-4.8); CREATININE 0.71 mg/dL (0.55-1.30); TOTAL BILIRUBIN 0.4 mg/dL (0.0-1.0)
[2022-03-20] MEDS: POTASSIUM CHLORIDE 20 MEQ/PKT PACKET GT SCH (08:25)
[2022-03-20] MEDS: DOCUSATE SODIUM 100 MG/10 ML UDC PO SCH (08:25)
[2022-03-20] MEDS: ENOXAPARIN SODIUM 40 MG/0.4 ML SYRINGE SUBCUT SCH (08:31)
[2022-03-20] MEDS: PROPOFOL DRIP 100 ML IV PRN ×3 (14:41→22:45)
--- NOTE | 2022-03-20 15:22 | NUR ---
9-080 ASHKAN MADE A CALL AND SPOKE TO [facility], RECEIVED NUMBER [phone]. THEY WILL REACH OUT TO DR CUMMINGS FOR THIS REFERRAL.
--- NOTE | 2022-03-20 19:05 | NUR ---
OPENING NOTES: RECEIVED BEDSIDE REPORT FROM CHERIE. PATIENT IS A/OX0; OBTUNDED; DOES NOT OPEN EYES. TACH TO VENT SETTING ARE AC/VC 20, 450, 85%, 5. PT HAS A G-TUBE WITH NEPRO RUNNING AT 40 (GOAL) WITH FWF 100 ML Q8H. MOON THAT IS DRAINAGE TO GRAVITY. PT HAS A LEFT AND RIGHT CHEST TUBE THAT IS NOT DRAINING. ESTEVAN PICC WITH DIPRIVAN AT 25 MCG/KG/MIN, MORPHINE AT 4 (DR WANTS TO TITRATE SLOWLY OFF), AND D5 1/2 NS RUNNING TKO. 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 FAMILY IS WANTING TO WITHDRAW CARE TOMORROW, WILL ENDORSE TO DAY SHIFT. BED IS AT THE LOWEST LEVEL, BRAKES ARE LOCKED, 3 SIDE RAILS UP, SUCTION IS WORKING, AND CALL LIGHT IS WITHIN REACH.
--- NOTE | 2022-03-20 19:20 | NUR ---
ONE [facility] DAVIDE ON SITE TO REVIEW CHART TO DETERMINE IF PATIENT IS A CANDIDATE FOR DONATION.
[2022-03-21] VITALS (36 sets, daily range): BP systolic 96–146
[2022-03-21] MEDS: D5/0.45 NS 1,000 ML IV SCH ×2 (02:00→21:12)
[2022-03-21] MEDS: IPRATROPIUM/ALBUTEROL SULFATE 3 ML AMPUL.NEB (DUONEB) INH SCH ×6 (02:40→23:30)
[2022-03-21] MEDS: MORPHINE SULFATE IN 0.9 % NACL 100 ML IV PRN (04:57)
[2022-03-21] MEDS: PROPOFOL DRIP 100 ML IV PRN ×4 (04:59→21:46)
[2022-03-21] MEDS: METOCLOPRAMIDE HCL 10 MG/2 ML VIAL IVP SCH ×4 (05:06→23:56)
[2022-03-21] MEDS: PIPERACILLIN/TAZO 3.375/DEX-IS 50 ML IV SCH (05:06)
[2022-03-21 07:11] LABS: BASOPHILS % (AUTO) 0.2 % (0.0-2.0); EOSINOPHILS # (AUTO) 0.1 K/uL (0.0-0.4); EOSINOPHILS % (AUTO) 1.1 % (0.0-4.0); HEMATOCRIT 28.8 % (36-48); HEMOGLOBIN 9.1 g/dL (12.0-16.0); LYMPHOCYTES # (AUTO) 1.6 K/uL (1.0-5.5); LYMPHOCYTES % (AUTO) 12.3 % (20.5-51.5); MEAN CORPUSCULAR HEMOGLOBIN 24 pg (27-31); MEAN CORPUSCULAR HGB CONC 32 % (32-36); MEAN CORPUSCULAR VOLUME 77 fL (79.0-98.0); MONOCYTES % (AUTO) 7.8 % (1.7-9.3); NEUTROPHILS # (AUTO) 10.3 K/uL (1.8-7.7); NEUTROPHILS % (AUTO) 78.6 % (40.0-70.0); PLATELET COUNT (AUTO) 272 K/uL (130-430); RED BLOOD CELL COUNT(AUTO) 3.75 MIL/uL (4.2-6.2); RED CELL DISTRIBUTION WIDTH 18.8 % (9.0-15.0); WHITE BLOOD COUNT (AUTO) 13.1 K/uL (4.8-10.8)
[2022-03-21 07:24] LABS: CALCIUM 8.9 mg/dL (8.4-11.0); CREATININE 0.64 mg/dL (0.55-1.30)
--- NOTE | 2022-03-21 08:32 | NUR ---
Bilateral chest tubes water chamber bubbling when came into room to assess patient. Patient on low suction at 25 mm Hg. Checked tubing and added xeropore tape to chest to check leakage. Weaned patient down to 10 mm Hg on wall suction. Air bubbling stopped. Dr. Slater made aware of situation.
[2022-03-21] MEDS: FAMOTIDINE PF 20 MG/2 ML VIAL IVP SCH ×2 (08:46→21:12)
[2022-03-21] MEDS: POTASSIUM CHLORIDE 20 MEQ/PKT PACKET GT SCH (08:46)
[2022-03-21] MEDS: ENOXAPARIN SODIUM 40 MG/0.4 ML SYRINGE SUBCUT SCH (08:47)
[2022-03-21] MEDS: METHYLPREDNISOLONE SOD SUCC 40 MG/ML VIAL IVP SCH ×2 (08:47→21:12)
[2022-03-21] MEDS: DOCUSATE SODIUM 100 MG/10 ML UDC PO SCH (08:47)
[2022-03-21] MEDS: levETIRAcetam 500 MG in NS 100 ML IV SCH ×2 (08:48→21:11)
--- NOTE | 2022-03-21 11:01 | NUR ---
[facility] called asking for information and updates.
--- NOTE | 2022-03-21 12:11 | NUR ---
Spoke with Chen, patient's daughter, regarding meeting regarding comfort measures. Patient's daughter wants to be the sole person to contact. Chen, patient's daughter, said that she was unaware of the meeting today. Patient's daughter has some concerns about the patient. FAN Cobos made aware of the situation.
--- NOTE | 2022-03-21 12:51 | NUR ---
Informed patient's sister, Jyoti, regarding Chen (daughter)'s request regarding daughter's request to be the sole decision maker. FAN Cobos and Dr. Willams informed about the situation regarding sorting out who the sole decision maker is for the patient.
--- NOTE | 2022-03-21 13:01 | NUR ---
BHARAT Wang made aware of the situation where there is confusion between Jyoti, Patient's sister, and Chen, Patient's daughter. Chen, Patient's daughter, said that she was sole decision maker and was not informed of meeting today regarding comfort measures. Explained situation to Kathleen. Kathleen to follow up with family regarding sole decision maker situation. FAN Cobos made aware.
[2022-03-21] MEDS ORDERED: POTASSIUM CHLORIDE 20 MEQ/PKT PACKET GT ONE (13:30)
--- NOTE | 2022-03-21 13:30 | NUR ---
BUSINESS DEVELOPMENT REPRESENTATIVE ACSW Kathleen responded to a verbal request from assigned RN John Paul and Social Work consult from Dr. Willams to address concerns related to patient's care and clarify decision maker. ACSW reviewed notes and contacts on facesheet. ACSW reviewed physical chart for any indication of POA or Advance Directive. ACSW contacted patient's last residence of [facility]. According to [facility]'s Catalog Library Assistant Gladys, they have patient's daughter Chen Uriarte as patient's decision maker. Gladys also stated prior to patient's current condition, under their care, patient verbalized daughter was her support. ACSW contacted patient's daughter Chen to discuss previously scheduled "family meeting" had been cancelled as she had not been notified. Patient's daughter expressed concern, according to her, she had only spoken to Dr. Mora on Monday 03/19 and had not received updates from other physicians. ACSW acknowledged her concerns and informed her staff would be updated on request for update on patient's status. Patient's daughter did confirm she consented to DNR status, but would like to speak to other care providers before making additional decisions regarding care. ACSW provided update to CHIEF DISPATCHER John Paul and web development consultant Carlos. ACSW also consulted with Dr. Willams and assisted him with contacting patient's daughter. ACSW will continue to be available as needed
--- NOTE | 2022-03-21 13:43 | NUR ---
Reported to Dr. Slater regarding patient's ABG and chest x-ray results.
--- NOTE | 2022-03-21 13:45 | NUR ---
BHARAT Wang came to update FAN Cobos and ELLA Coker about situation.
--- NOTE | 2022-03-21 18:16 | NUR ---
Turned cleaned and changed patient throughout the day. Patient had 2 BM that is watery stool. Patient on tube feedings. IV Drips as indicated.
--- NOTE | 2022-03-21 19:00 | NUR ---
Opening notes Received report from endorsing morning shift RN John Paul for continuity of care. Patient is lying in bed with IVF NS @ tko, diprivan @ 25 mcg/kg/min, and morphine @ 3.5 mg/hr. Patient's vital signs blood pressure 109/64, heart rate 76, respirations 20, and SPO2 95% on ventilator. Ventilator settings AC 20, tidal volume 450, peep of 5, and FIO2 85%. Carney catheter is in place draining to gravity. Bilateral chest tube is intact and clean. Bed is locked and in lowest position, fall and safety precautions is in place.
--- NOTE | 2022-03-21 19:01 | NUR ---
Report given to night order selector RN for continuity of care. Patient in stable condition. No distress noted.
[2022-03-22] VITALS (35 sets, daily range): BP systolic 101–158
[2022-03-22] MEDS: IPRATROPIUM/ALBUTEROL SULFATE 3 ML AMPUL.NEB (DUONEB) INH SCH ×7 (02:58→23:53)
--- NOTE | 2022-03-22 04:26 | NUR ---
[facility] called for information about the patient.
[2022-03-22] MEDS: PROPOFOL DRIP 100 ML IV PRN ×3 (05:05→20:20)
[2022-03-22] MEDS: METOCLOPRAMIDE HCL 10 MG/2 ML VIAL IVP SCH ×3 (06:09→18:00)
[2022-03-22 06:51] LABS: BASOPHILS # (AUTO) 0.2 K/uL (0.0-0.2); BASOPHILS % (AUTO) 1.3 % (0.0-2.0); EOSINOPHILS # (AUTO) 0.5 K/uL (0.0-0.4); EOSINOPHILS % (AUTO) 2.8 % (0.0-4.0); HEMATOCRIT 27.8 % (36-48); HEMOGLOBIN 9.1 g/dL (12.0-16.0); LYMPHOCYTES # (AUTO) 2.3 K/uL (1.0-5.5); LYMPHOCYTES % (AUTO) 12.2 % (20.5-51.5); MEAN CORPUSCULAR HEMOGLOBIN 25 pg (27-31); MEAN CORPUSCULAR HGB CONC 33 % (32-36); MEAN CORPUSCULAR VOLUME 76 fL (79.0-98.0); MONOCYTES # (AUTO) 1.2 K/uL (0.0-1.0); MONOCYTES % (AUTO) 6.7 % (1.7-9.3); NEUTROPHILS # (AUTO) 14.3 K/uL (1.8-7.7); PLATELET COUNT (AUTO) 295 K/uL (130-430); RED BLOOD CELL COUNT(AUTO) 3.64 MIL/uL (4.2-6.2); RED CELL DISTRIBUTION WIDTH 18.8 % (9.0-15.0); WHITE BLOOD COUNT (AUTO) 18.6 K/uL (4.8-10.8)
[2022-03-22 07:04] LABS: ALBUMIN 2.3 g/dL (3.4-4.8); CALCIUM 8.8 mg/dL (8.4-11.0); CREATININE 0.57 mg/dL (0.55-1.30); PHOSPHORUS 3.8 mg/dL (2.7-4.5); TOTAL BILIRUBIN 0.2 mg/dL (0.0-1.0)
--- NOTE | 2022-03-22 07:30 | NUR ---
Received report from ELLA Mathis. Patient is stable, nad, lying in bed with IVF NS @ 50ml/hr, diprivan @ 20 mcg/kg/min, and morphine @ 3 mg/hr. Ventilator settings AC 20, tidal volume 450, peep of 5, and FIO2 85%. Carney catheter is in place draining to gravity. Bilateral chest tube is intact and clean. Bed is locked and in lowest position, fall and safety precautions is in place.
[2022-03-22] MEDS: MORPHINE SULFATE IN 0.9 % NACL 100 ML IV PRN (08:51)
[2022-03-22] MEDS: levETIRAcetam 500 MG in NS 100 ML IV SCH ×2 (08:51→20:19)
[2022-03-22] MEDS: ENOXAPARIN SODIUM 40 MG/0.4 ML SYRINGE SUBCUT SCH (08:51)
[2022-03-22] MEDS: METHYLPREDNISOLONE SOD SUCC 40 MG/ML VIAL IVP SCH ×2 (08:51→20:19)
[2022-03-22] MEDS: DOCUSATE SODIUM 100 MG/10 ML UDC PO SCH (08:51)
[2022-03-22] MEDS: POTASSIUM CHLORIDE 20 MEQ/PKT PACKET GT SCH (08:51)
[2022-03-22] MEDS: FAMOTIDINE PF 20 MG/2 ML VIAL IVP SCH ×2 (08:51→20:18)
--- NOTE | 2022-03-22 11:31 | NUR ---
RT NOTES During HHN tx, sat went up to 92%, but as soon as HHN was taken off, sat went down to 90%, FIO2 to 100%, sat improved to 92%. ELLA Tucker notified.
--- NOTE | 2022-03-22 13:27 | NUR ---
RT NOTES @1316 titrated FIO2 TO 0.90. Saturation @1327 94%. will cont. to monitor pt.
--- NOTE | 2022-03-22 16:00 | NUR ---
RT NOTES FIO2 TO 0.80. @6157 SAT 92-93%
--- NOTE | 2022-03-22 16:30 | NUR ---
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 Pt presented to ED c/o SOB and had full arrest in ER. Pt reported fever, chills, chest pain then had a seizure in ED. Pt was sent for CT head and coded. S/p chest tubes. Pt now unresponsive and transferred to ICU. Per physician notes, mild PEM noted. Subjective Information: RD attended ICU rounds this morning and s/w patient RN. RD witnessed TF infusing at goal rate: Nepro @ 40mL/hr. Per EMR, pt noted with x 2 watery stool on 03/21; LBM x 1 03/22. Patient also noted with distended abdomen 03/22. Pt tolerating TF better with 15mL GRV documented 03/22. Per MD notes: MD recommending hospice, pending family decision. Patient unresponsive, eyes open. Patient on propofol, RD witnessed propofol infusing at 20mcg/11.6mL (provides 306 kcals). If patient status improves/ changes and further nutrition intervention is required, please consult RD. Current Diet Order/Nutrition Support: Nepro @ 40mL/hr + Prosource TID, FWF: 100mL Q8hr via GT x 6 days Pertinent Medications: Reglan, Solumedrol, Pepcid, Propofol, piperacillin/tazobactam, morphine, Colace, KCl 20 mEq pkt, D5 1/2NS Pertinent Labs: BG 136, 114 H, BUN 35 H, WBC 18.6 H Hgb 9.1 L Height (Feet) 5 feet Height (Inches) 4.00 inches Weight (Pounds) 213 pounds Weight (Calculated Kilograms) 96.670881 kilograms Patient Weight 96.615 kg Body Mass Index 36.56 kg/m2 %IBW 176 [place]/Adjusted Body Weight 120#/ 54.5kg Weight Status Obese Gastrointestinal Symptoms Distended abdomen 03/22 per EMR; 2 watery BM 03/22 Last BM Mar 22, 2022 x 1 Difficulty With: Chewing Swallowing Usual Diet At Home GTF Skin Integrity Comment: 03/22/22 per EMR - Thomas 11: Back skin tear, blister; perineal erythema, abdominal skin tear Edema: 2+ pitting BUE noted 03/22 per EMR Current % PO: 0% - NPO Estimated Energy Expenditure (kcals/day) 2184 (PSU >30 BMI for critical illness, vent) Estimated Protein Required (g/day) 82-109 (1.5-2 g/kg IBW for critical illness, BMI >30, vent) Estimated Fluid Required (l/day) per MD d/t COPD Problem/Etiology/Signs/Symptoms * Increased energy and protein expenditure r/t metabolic demands a/e/b estimated nutrient needs for critical illness, mechanical ventilation (On-going) * Swallowing difficulty r/t dysphagia a/e/b GT dependent (On-going) Expected Outcomes/Goals Pt tolerates EN at goal, EN provides >95% estimated nutrient needs, nutrition-related labs trending WNL, skin integrity/weight maintenance, BM q 1-3 days Dietitian Recommendations * Continue EN regimen as tolerated: Nepro at 40mL/hr, ProSource TID, FWF 100mL Q8h via GT Provides daily (w/prop, PS): 2214 kcals, 123g PRO, 997 mL fluids Meets: 101% est caloric needs, 113% upper PRO est needs * Continue Reglan per MD * If pt status changes and/or requires further nutrition intervention, please consult COOPER CC, MPH, RDN
--- NOTE | 2022-03-22 16:30 | NUR ---
Dietitian Recommendations * Continue EN regimen as tolerated: Nepro at 40mL/hr, ProSource TID, FWF 100mL Q8h via GT Provides daily (w/prop, PS): 2214 kcals, 123g PRO, 997 mL fluids Meets: 101% est caloric needs, 113% upper PRO est needs * Continue Reglan per MD * If pt status changes and/or requires further nutrition intervention, please consult RD Please refer to nutrition F/U for details, thanks! CC, MPH, RDN
[2022-03-22] MEDS: D5/0.45 NS 1,000 ML IV SCH (17:01)
--- NOTE | 2022-03-22 19:00 | NUR ---
Opening notes Received report from endorsing morning shift RN Garrett for continuity of care. Patient is lying in bed with IVF D5 1/2 Ns @ 50mL/hr, diprivan @ 20 mcg/kg/min, and morphine @ 2 mg/hr. Patient's vital signs blood pressure 102/65, heart rate 74, respirations 22, and SPO2 93% on ventilator. Ventilator settings AC 20, tidal volume 450, peep of 5, and FIO2 85%. Bilateral chest tube is intact and clean. Carney catheter is in place draining to gravity. Bed is locked and in lowest position, fall and safety precautions is in place.
[2022-03-23] VITALS (35 sets, daily range): BP systolic 94–150
[2022-03-23] MEDS: METOCLOPRAMIDE HCL 10 MG/2 ML VIAL IVP SCH ×5 (00:01→23:19)
[2022-03-23] MEDS: PROPOFOL DRIP 100 ML IV PRN ×4 (02:57→22:22)
[2022-03-23] MEDS: IPRATROPIUM/ALBUTEROL SULFATE 3 ML AMPUL.NEB (DUONEB) INH SCH ×6 (03:59→23:54)
[2022-03-23 06:43] LABS: ALBUMIN 2.3 g/dL (3.4-4.8); CALCIUM 8.7 mg/dL (8.4-11.0); CREATININE 0.53 mg/dL (0.55-1.30); TOTAL BILIRUBIN 0.2 mg/dL (0.0-1.0)
[2022-03-23 08:04] LABS: BASOPHILS # (AUTO) 0.1 K/uL (0.0-0.2); BASOPHILS % (AUTO) 0.5 % (0.0-2.0); EOSINOPHILS # (AUTO) 0.1 K/uL (0.0-0.4); EOSINOPHILS % (AUTO) 0.9 % (0.0-4.0); HEMATOCRIT 27.9 % (36-48); LYMPHOCYTES # (AUTO) 1.5 K/uL (1.0-5.5); LYMPHOCYTES % (AUTO) 12.2 % (20.5-51.5); MEAN CORPUSCULAR HEMOGLOBIN 25 pg (27-31); MEAN CORPUSCULAR HGB CONC 32 % (32-36); MEAN CORPUSCULAR VOLUME 77 fL (79.0-98.0); MONOCYTES # (AUTO) 0.9 K/uL (0.0-1.0); MONOCYTES % (AUTO) 7.3 % (1.7-9.3); NEUTROPHILS % (AUTO) 79.1 % (40.0-70.0); PLATELET COUNT (AUTO) 290 K/uL (130-430); RED BLOOD CELL COUNT(AUTO) 3.63 MIL/uL (4.2-6.2); RED CELL DISTRIBUTION WIDTH 19.1 % (9.0-15.0); WHITE BLOOD COUNT (AUTO) 12.6 K/uL (4.8-10.8)
[2022-03-23] MEDS: METHYLPREDNISOLONE SOD SUCC 40 MG/ML VIAL IVP SCH ×2 (09:22→20:53)
[2022-03-23] MEDS: ENOXAPARIN SODIUM 40 MG/0.4 ML SYRINGE SUBCUT SCH (09:22)
[2022-03-23] MEDS: DOCUSATE SODIUM 100 MG/10 ML UDC PO SCH (09:22)
[2022-03-23] MEDS: FAMOTIDINE PF 20 MG/2 ML VIAL IVP SCH ×2 (09:22→20:52)
[2022-03-23] MEDS: POTASSIUM CHLORIDE 20 MEQ/PKT PACKET GT SCH (09:23)
[2022-03-23] MEDS: levETIRAcetam 500 MG in NS 100 ML IV SCH ×2 (09:23→20:52)
[2022-03-23] MEDS: D5/0.45 NS 1,000 ML IV SCH (14:10)
[2022-03-23] MEDS ORDERED: POTASSIUM CHLORIDE 20 MEQ/PKT PACKET PO ONE (14:15)
[2022-03-23] MEDS: MORPHINE SULFATE IN 0.9 % NACL 100 ML IV PRN (15:32)
--- NOTE | 2022-03-23 16:59 | NUR ---
CALLED AND NOTIFIED DR REYNOLDS THAT AN EEG WAS PERFORMED ON 03/21 PER THE HEAD SILVERMAN. DR REYNOLDS ORDERED TO CANCEL THE EEG FOR TODAY AND STATED HE WILL REVIEW THE ONE FROM 03/21.
--- NOTE | 2022-03-23 19:00 | NUR ---
Opening notes Received report from endorsing morning shift ELLA Mcgee for continuity of care. Patient is lying in bed with IVF D5 1/2 NS @ 50 mL/hr, diprivan @ 20 mcg/kg/min, and morphine @ 1 mg/hr. Patient's vital signs blood pressure 108/61, heart rate 69, respirations 20, and SPO2 95% on ventilator. Ventilator settings AC 20, tidal volume 450, FIO2 85%, and peep of 5. Chest tube is in place and intact. Carney catheter is in place draining to gravity. Bed is locked and in lowest position, fall and safety precautions is in place.
--- NOTE | 2022-03-23 19:30 | NUR ---
Personal belongings Gave a yellow ring to patient's daughter Chen.
[2022-03-23] MEDS: QUEtiapine FUMARATE 25 MG TABLET GT SCH (20:52)
[2022-03-24] VITALS (45 sets, daily range): BP systolic 101–144
[2022-03-24] MEDS: IPRATROPIUM/ALBUTEROL SULFATE 3 ML AMPUL.NEB (DUONEB) INH SCH ×6 (03:00→23:11)
[2022-03-24] MEDS: PROPOFOL DRIP 100 ML IV PRN (05:27)
[2022-03-24] MEDS: METOCLOPRAMIDE HCL 10 MG/2 ML VIAL IVP SCH ×3 (05:36→17:45)
[2022-03-24 07:11] LABS: BASOPHILS # (AUTO) 0.1 K/uL (0.0-0.2); BASOPHILS % (AUTO) 0.4 % (0.0-2.0); EOSINOPHILS # (AUTO) 0.1 K/uL (0.0-0.4); EOSINOPHILS % (AUTO) 0.8 % (0.0-4.0); HEMATOCRIT 27.5 % (36-48); HEMOGLOBIN 8.8 g/dL (12.0-16.0); LYMPHOCYTES # (AUTO) 1.3 K/uL (1.0-5.5); LYMPHOCYTES % (AUTO) 10.3 % (20.5-51.5); MEAN CORPUSCULAR HEMOGLOBIN 25 pg (27-31); MEAN CORPUSCULAR HGB CONC 32 % (32-36); MEAN CORPUSCULAR VOLUME 77 fL (79.0-98.0); MONOCYTES # (AUTO) 0.8 K/uL (0.0-1.0); MONOCYTES % (AUTO) 5.9 % (1.7-9.3); NEUTROPHILS # (AUTO) 10.6 K/uL (1.8-7.7); NEUTROPHILS % (AUTO) 82.6 % (40.0-70.0); PLATELET COUNT (AUTO) 286 K/uL (130-430); RED CELL DISTRIBUTION WIDTH 18.9 % (9.0-15.0); WHITE BLOOD COUNT (AUTO) 12.8 K/uL (4.8-10.8)
[2022-03-24 07:18] LABS: CALCIUM 8.5 mg/dL (8.4-11.0); CREATININE 0.51 mg/dL (0.55-1.30); PHOSPHORUS 2.9 mg/dL (2.7-4.5)
[2022-03-24] MEDS ORDERED: POTASSIUM CHLORIDE 20 MEQ/PKT PACKET ONE (09:27)
[2022-03-24] MEDS: METHYLPREDNISOLONE SOD SUCC 40 MG/ML VIAL IVP SCH ×2 (09:48→20:55)
[2022-03-24] MEDS: FAMOTIDINE PF 20 MG/2 ML VIAL IVP SCH ×2 (09:48→20:54)
[2022-03-24] MEDS: DOCUSATE SODIUM 100 MG/10 ML UDC PO SCH (09:48)
[2022-03-24] MEDS: QUEtiapine FUMARATE 25 MG TABLET GT SCH ×2 (09:49→20:53)
[2022-03-24] MEDS: POTASSIUM CHLORIDE 20 MEQ/PKT PACKET PO SCH (09:49)
[2022-03-24] MEDS: levETIRAcetam 500 MG in NS 100 ML IV SCH ×2 (09:50→20:54)
[2022-03-24] MEDS: ENOXAPARIN SODIUM 40 MG/0.4 ML SYRINGE SUBCUT SCH (10:17)
[2022-03-24] MEDS: D5/0.45 NS 1,000 ML IV SCH ×2 (11:00→21:32)
--- NOTE | 2022-03-24 15:17 | NUR ---
RT NOTES 1517 TITRATED FIO2 TO 70%, PT SATURATING 95%. NO RESP DISTRESS NOTED. WILL CONT TO MONITOR PT.
[2022-03-25] VITALS (33 sets, daily range): BP systolic 95–146
[2022-03-25] MEDS: METOCLOPRAMIDE HCL 10 MG/2 ML VIAL IVP SCH ×4 (02:20→18:55)
[2022-03-25] MEDS: IPRATROPIUM/ALBUTEROL SULFATE 3 ML AMPUL.NEB (DUONEB) INH SCH ×6 (03:27→23:36)
[2022-03-25] MEDS: MORPHINE SULFATE IN 0.9 % NACL 100 ML IV PRN ×2 (05:50→19:39)
[2022-03-25 08:07] LABS: CALCIUM 8.4 mg/dL (8.4-11.0); CREATININE 0.54 mg/dL (0.55-1.30)
[2022-03-25 08:24] LABS: BASOPHILS # (AUTO) 0.1 K/uL (0.0-0.2); BASOPHILS % (AUTO) 0.4 % (0.0-2.0); EOSINOPHILS # (AUTO) 0.2 K/uL (0.0-0.4); EOSINOPHILS % (AUTO) 1.4 % (0.0-4.0); HEMATOCRIT 32.8 % (36-48); HEMOGLOBIN 10.2 g/dL (12.0-16.0); LYMPHOCYTES # (AUTO) 1.5 K/uL (1.0-5.5); LYMPHOCYTES % (AUTO) 11.1 % (20.5-51.5); MEAN CORPUSCULAR HEMOGLOBIN 24 pg (27-31); MEAN CORPUSCULAR HGB CONC 31 % (32-36); MEAN CORPUSCULAR VOLUME 78 fL (79.0-98.0); MONOCYTES # (AUTO) 0.8 K/uL (0.0-1.0); MONOCYTES % (AUTO) 6.1 % (1.7-9.3); NEUTROPHILS # (AUTO) 10.9 K/uL (1.8-7.7); PLATELET COUNT (AUTO) 323 K/uL (130-430); RED BLOOD CELL COUNT(AUTO) 4.22 MIL/uL (4.2-6.2); WHITE BLOOD COUNT (AUTO) 13.4 K/uL (4.8-10.8)
[2022-03-25] MEDS: POTASSIUM CHLORIDE 20 MEQ/PKT PACKET PO SCH (09:00)
[2022-03-25] MEDS: QUEtiapine FUMARATE 25 MG TABLET GT SCH ×2 (09:00→20:46)
[2022-03-25] MEDS: DOCUSATE SODIUM 100 MG/10 ML UDC PO SCH (09:00)
[2022-03-25] MEDS: FAMOTIDINE PF 20 MG/2 ML VIAL IVP SCH ×2 (09:00→20:45)
[2022-03-25] MEDS: levETIRAcetam 500 MG in NS 100 ML IV SCH ×2 (09:00→20:45)
[2022-03-25] MEDS: ENOXAPARIN SODIUM 40 MG/0.4 ML SYRINGE SUBCUT SCH (09:00)
[2022-03-25] MEDS: METHYLPREDNISOLONE SOD SUCC 40 MG/ML VIAL IVP SCH ×2 (09:00→20:45)
--- NOTE | 2022-03-25 10:07 | NUR ---
RECV'D PT FROM RAJNI RN. PT CURRENTLY TOLERATING VENT VC WITH MINIMAL PEAK PRESSURES 26. LUNGS WITH WHEEZING ON AUSCULTATION TO UPPER LOBES. NEBULIZER TX GIVEN BY RT. CONT ON ACID TESTER WITH NSR NOTED WITHOUT ECTOPY. BP STABLE WITH SBP IN THE 100'S. TRACH SITE C/D/I. MINIMAL SECRETIONS NOTED WITH ET SUCTIONING. ORAL CARE PROVIDED. PEG TUBE WITH 90ML RESIDUAL REMOVED AND WASTED. PICC LINE C/D/I. CONT ON PROPOFOL AT 25MCG/KG/MIN AND MORPHINE 5MG/HR. PT APPEARS COMFORTABLE. NO NEURO RESPONSE BY PT. EYES OPEN INTERMITTENTLY WITH NO PURPOSEFUL MOVEMENTS. DOES NOT TRACK. + COUGH REFLEX. UNABLE TO CHECK FOR GAG REFLEX DUE TO PT BITING ON YAUNKER. SCD IN PLACE. SEIZURE PRECAUTIONS USED. ALL NEEDS ATTENDED TO. CALL LIGHT IN REACH. WILL CONT TO MONITOR.
[2022-03-25] MEDS ORDERED: NALOXONE HCL 0.4 MG/ML AMP (NARCAN) IVP PRN (11:15)
--- NOTE | 2022-03-25 14:19 | NUR ---
Dietitian Recommendations * Nepro at 30 ml/hr (goal rate), Prosource BID, Free Water Flush: 100 ml Q8h via GT Provides daily (w/ Propofol, D5NS, Prosource): 2003 kcal/day, 123 gm protein/day, and 997 ml free water/day Meets: 116% of estimated caloric needs and 107% of lower end of estimated protein needs * Continue Reglan per MD * If pt status changes and/or requires further nutrition intervention, please consult RD LP, MS, RD Please refer to Nutrition F/U for details.
--- NOTE | 2022-03-25 14:19 | NUR ---
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 Pt presented to ED c/o SOB and had full arrest in ER. Pt reported fever, chills, chest pain then had a seizure in ED. Pt was sent for CT head and coded. S/p chest tubes. Pt now unresponsive and transferred to ICU. Per physician notes, mild PEM noted. Subjective Information: Cabinet Finisher rounded to pt bedside, pt asleep at time of visit, not arousable to knocking on door or to name. Cabinet Finisher witnessed Nepro TF infusing at rate of 40ml/hr, with 190ml infused at time of visit. Per primary RN, pt tolerting TF, 90cc of residuals in the morning and 40-45cc residuals at time of visit. RN reports no BM, however 1 BM documented in EMR. Cabinet Finisher witnessed Propofol/Diprivan running at 25mcg (provides 383kcal/day), D5NS at 50ml (provides 204kcal/day), morphine at 5mg. CBW 228 lbs via bedscale wt -- RN reported bedscale is accurate, however Cabinet Finisher unable to assess pt's physical appearance d/t pt covered w/ multiple linens. Cabinet Finisher witnessed pt on [facility] vent -- Ve 9.4 at time of visit. Current TF prescription (w/ propofol, D5NS, Prosource) provides: 2495 kcal/day, 123 gm protein/day, and 997 ml free water/day -- this meets: 144% of estimated caloric needs and 113% upper end of estimated protein needs. Current Diet Order/Nutrition Support: Nepro at 40 ml/hr, Prosource TID, Free Water Flush: 100 ml Q8h via GT x 9 days Pertinent Medications: Reglan, Solumedrol, Pepcid, Propofol, Piperacillin/Tazobactam, Morphine, Colace, KCl 20 mEq pkt, D5 1/2NS Pertinent Labs: BG 136 H, BUN 23 H - improving, WBC 13.4 H - improving, H/H 10.2 L/32.8 L - improving Height (Feet) 5'4 PREVIOUS Weight 213 lbs/96.6kg (03/15) NEW Weight (per bedscale) 228lbs/103.5kg -- questionable wt gain of 15lbs/7% change in 10 days (03/25) NEW Body Mass Index 39.1 kg/m2 NEW %IBW 190 [place]/Adjusted Body Weight 120#/ 54.5kg Weight Status Obese Gastrointestinal Symptoms Distended abdomen 03/25 per EMR Last BM Mar 25, 2022 x 1 per EMR review Difficulty With: Chewing, Swallowing Usual Diet At Home GTF Skin Integrity Comment: 03/25/22 per EMR - Thomas 11: Back skin tear, blister; perineal erythema, abdominal skin tear Edema: 2+ pitting BUE noted 03/25 per EMR Current % PO: 0% - NPO NEW Estimated Energy Expenditure (kcals/day) -- needs adjusted d/t wt change 1733 (PSU >30 BMI for critical illness, vent -- Ve 9.4, Tmax 36.6) Estimated Protein Required (g/day) 82-109 (1.5-2 g/kg IBW for critical illness, BMI >30, vent) Estimated Fluid Required (l/day) per MD d/t COPD Problem/Etiology/Signs/Symptoms * Increased energy and protein expenditure r/t metabolic demands a/e/b estimated nutrient needs for critical illness, mechanical ventilation (Ongoing) * Swallowing difficulty r/t dysphagia a/e/b GT dependent (Ongoing) * Suboptimal EN support R/T risk for overfeeding AEB current TF prescription exceeds 144% of estimated caloric needs and meets 113% of upper end of estimated protein needs. (*New) Expected Outcomes/Goals Pt tolerates EN at goal, EN provides >95% estimated nutrient needs, nutrition-related labs trending WNL, skin integrity/weight maintenance, BM q 1-3 days Dietitian Recommendations * Nepro at 30 ml/hr (goal rate), Prosource BID, Free Water Flush: 100 ml Q8h via GT Provides daily (w/ Propofol, D5NS, Prosource): 2003 kcal/day, 123 gm protein/day, and 997 ml free water/day Meets: 116% of estimated caloric needs and 107% of lower end of estimated protein needs * Continue Reglan per MD * If pt status changes and/or requires further nutrition intervention, please consult RD Follow Up: Mod Risk 3-5 days Follow Up By: Mar 30, 2022 Co-Signed By: Sydni Schaefer MS, RD
[2022-03-25] MEDS: PROPOFOL DRIP 100 ML IV PRN ×2 (14:46→20:12)
--- NOTE | 2022-03-25 19:00 | NUR ---
Received pt in in bed .Neuro opens eyes but does not track.she has a trach in place/vent settings AC/VC 20 TV 450 PEEP 5 FIO2-65% Vitals done BPs 98/61 HR 63 RR 20 spo2-93% ,Careny catheter draining minimal urine. Has Bilateral chest tubes in place.opens eyes but does not track.pt has bilateral Intermittent SCDS, Fall and Seizure precaution maintained.
[2022-03-25] MEDS: D5/0.45 NS 1,000 ML IV SCH (19:24)
--- NOTE | 2022-03-25 22:00 | NUR ---
cares given. Nepro feed @30 ml/hr in progress. on D5NS @50m/h .Morphine @5mg/h.and propofol @25mg/kg/min in progress to maintain her on moderate sedation
[2022-03-26] VITALS (29 sets, daily range): BP systolic 99–149
--- NOTE | 2022-03-26 | NUR ---
CHG bath, oral /Trach suction done .linen changed
[2022-03-26] MEDS: METOCLOPRAMIDE HCL 10 MG/2 ML VIAL IVP SCH ×5 (00:05→23:29)
--- NOTE | 2022-03-26 02:20 | NUR ---
FIO2 INCREASED TO 80%
[2022-03-26] MEDS: IPRATROPIUM/ALBUTEROL SULFATE 3 ML AMPUL.NEB (DUONEB) INH SCH ×5 (03:31→20:22)
--- NOTE | 2022-03-26 06:00 | NUR ---
BED BATH AND LINEN CHANGED MORNING CARES GIVEN .MEDICATED PRESCRIBED .
[2022-03-26 07:27] LABS: ALBUMIN 2.5 g/dL (3.4-4.8); CALCIUM 8.6 mg/dL (8.4-11.0); CREATININE 0.52 mg/dL (0.55-1.30); TOTAL BILIRUBIN 0.3 mg/dL (0.0-1.0)
--- NOTE | 2022-03-26 07:27 | NUR ---
RT NOTES FIO2 TO 0.75
[2022-03-26 07:36] LABS: BASOPHILS % (AUTO) 0.2 % (0.0-2.0); EOSINOPHILS # (AUTO) 0.3 K/uL (0.0-0.4); EOSINOPHILS % (AUTO) 2.3 % (0.0-4.0); HEMATOCRIT 30.5 % (36-48); HEMOGLOBIN 9.6 g/dL (12.0-16.0); LYMPHOCYTES # (AUTO) 1.8 K/uL (1.0-5.5); LYMPHOCYTES % (AUTO) 13.6 % (20.5-51.5); MEAN CORPUSCULAR HEMOGLOBIN 24 pg (27-31); MEAN CORPUSCULAR HGB CONC 32 % (32-36); MONOCYTES # (AUTO) 0.9 K/uL (0.0-1.0); MONOCYTES % (AUTO) 6.7 % (1.7-9.3); NEUTROPHILS # (AUTO) 10.2 K/uL (1.8-7.7); NEUTROPHILS % (AUTO) 77.2 % (40.0-70.0); PLATELET COUNT (AUTO) 348 K/uL (130-430); RED BLOOD CELL COUNT(AUTO) 3.99 MIL/uL (4.2-6.2); RED CELL DISTRIBUTION WIDTH 18.8 % (9.0-15.0); WHITE BLOOD COUNT (AUTO) 13.2 K/uL (4.8-10.8)
--- NOTE | 2022-03-26 07:49 | NUR ---
Report received from table games shift manager RN for continuity of care. Patient stable condition.
[2022-03-26 07:51] LABS: MEAN CORPUSCULAR VOLUME 76 fL (79.0-98.0)
[2022-03-26] MEDS: DOCUSATE SODIUM 100 MG/10 ML UDC PO SCH ×2 (09:00→10:36)
[2022-03-26] MEDS: METHYLPREDNISOLONE SOD SUCC 40 MG/ML VIAL IVP SCH ×2 (09:13→21:14)
[2022-03-26] MEDS: FAMOTIDINE PF 20 MG/2 ML VIAL IVP SCH ×2 (09:13→21:14)
[2022-03-26] MEDS: levETIRAcetam 500 MG in NS 100 ML IV SCH ×2 (09:14→21:14)
[2022-03-26] MEDS: QUEtiapine FUMARATE 25 MG TABLET GT SCH (09:14)
[2022-03-26] MEDS: POTASSIUM CHLORIDE 20 MEQ/PKT PACKET PO SCH (09:15)
[2022-03-26] MEDS: ENOXAPARIN SODIUM 40 MG/0.4 ML SYRINGE SUBCUT SCH (09:15)
[2022-03-26] MEDS: PROPOFOL DRIP 100 ML IV PRN (09:19)
--- NOTE | 2022-03-26 11:27 | NUR ---
Spoke with Domingo, [facility], regarding patient's status. Checked with Dr. Cowan, neurologist about patient status.
--- NOTE | 2022-03-26 11:30 | NUR ---
RT NOTES FIO2 TO 0.80, LOW SAT DESPITE HHN TX AND TRACHEAL SXN. @1210 SAT 93%
[2022-03-26] MEDS: MORPHINE SULFATE IN 0.9 % NACL 100 ML IV PRN (12:51)
[2022-03-26] MEDS ORDERED: QUEtiapine FUMARATE 25 MG TABLET PO ONE (13:00)
--- NOTE | 2022-03-26 19:27 | NUR ---
Report given to [facility] shift lead RN for continuity of care. Patient stable.
[2022-03-26] MEDS: D5/0.45 NS 1,000 ML IV SCH (21:15)
[2022-03-26] MEDS: QUEtiapine FUMARATE 25 MG TABLET PO SCH (21:15)
[2022-03-27] VITALS (31 sets, daily range): BP systolic 95–151
[2022-03-27] MEDS: IPRATROPIUM/ALBUTEROL SULFATE 3 ML AMPUL.NEB (DUONEB) INH SCH ×6 (00:27→22:49)
[2022-03-27] MEDS ORDERED: METOCLOPRAMIDE HCL 10 MG/2 ML VIAL ONE (03:18)
[2022-03-27] MEDS: METOCLOPRAMIDE HCL 10 MG/2 ML VIAL IVP SCH ×4 (05:28→23:56)
[2022-03-27 06:40] LABS: BASOPHILS # (AUTO) 0.1 K/uL (0.0-0.2); BASOPHILS % (AUTO) 0.4 % (0.0-2.0); EOSINOPHILS # (AUTO) 0.2 K/uL (0.0-0.4); EOSINOPHILS % (AUTO) 1.2 % (0.0-4.0); HEMOGLOBIN 9.3 g/dL (12.0-16.0); LYMPHOCYTES # (AUTO) 1.3 K/uL (1.0-5.5); LYMPHOCYTES % (AUTO) 10.4 % (20.5-51.5); MEAN CORPUSCULAR HEMOGLOBIN 24 pg (27-31); MEAN CORPUSCULAR HGB CONC 32 % (32-36); MEAN CORPUSCULAR VOLUME 76 fL (79.0-98.0); MONOCYTES # (AUTO) 0.9 K/uL (0.0-1.0); MONOCYTES % (AUTO) 7.3 % (1.7-9.3); NEUTROPHILS # (AUTO) 10.3 K/uL (1.8-7.7); NEUTROPHILS % (AUTO) 80.7 % (40.0-70.0); PLATELET COUNT (AUTO) 329 K/uL (130-430); RED BLOOD CELL COUNT(AUTO) 3.82 MIL/uL (4.2-6.2); RED CELL DISTRIBUTION WIDTH 18.6 % (9.0-15.0); WHITE BLOOD COUNT (AUTO) 12.7 K/uL (4.8-10.8)
--- NOTE | 2022-03-27 07:30 | NUR ---
Opening Received report on pt. Pt in no signs of pain or distress, trach to vent. On morphine and diprivan drips. Tube feeding to Gtube. Carney draining samreen urine to gravity. Bilateral chest tubes in place to water seal, no drainage noted in tube. SCDs in place.
[2022-03-27 07:58] LABS: ALBUMIN 2.4 g/dL (3.4-4.8); CALCIUM 8.5 mg/dL (8.4-11.0); CREATININE 0.57 mg/dL (0.55-1.30); TOTAL BILIRUBIN 0.3 mg/dL (0.0-1.0)
[2022-03-27] MEDS: DOCUSATE SODIUM 100 MG/10 ML UDC PO SCH (08:13)
[2022-03-27] MEDS: POTASSIUM CHLORIDE 20 MEQ/PKT PACKET PO SCH (08:13)
[2022-03-27] MEDS: QUEtiapine FUMARATE 25 MG TABLET PO SCH ×2 (08:14→20:41)
[2022-03-27] MEDS: FAMOTIDINE PF 20 MG/2 ML VIAL IVP SCH ×2 (08:14→20:41)
[2022-03-27] MEDS: ENOXAPARIN SODIUM 40 MG/0.4 ML SYRINGE SUBCUT SCH (08:14)
[2022-03-27] MEDS: levETIRAcetam 500 MG in NS 100 ML IV SCH ×2 (08:15→20:41)
[2022-03-27] MEDS: METHYLPREDNISOLONE SOD SUCC 40 MG/ML VIAL IVP SCH ×2 (08:17→20:41)
--- NOTE | 2022-03-27 08:30 | NUR ---
Dr. Tyler collins, informed regarding chest tubes, states to have CXR today and CXR tomorrow to determine removal of chest tubes.
[2022-03-27] MEDS: MORPHINE SULFATE IN 0.9 % NACL 100 ML IV PRN (14:34)
[2022-03-27] MEDS: D5/0.45 NS 1,000 ML IV SCH (17:10)
[2022-03-27] MEDS: PROPOFOL DRIP 100 ML IV PRN (17:37)
--- NOTE | 2022-03-27 19:10 | NUR ---
Endorsed plan of care to RN
[2022-03-28] VITALS (26 sets, daily range): BP systolic 106–145
[2022-03-28] MEDS: IPRATROPIUM/ALBUTEROL SULFATE 3 ML AMPUL.NEB (DUONEB) INH SCH ×4 (02:59→22:41)
[2022-03-28] MEDS ORDERED: MORPHINE SULFATE 10 MG/ML VIAL ONE (05:09)
[2022-03-28] MEDS: MORPHINE SULFATE IN 0.9 % NACL 100 ML IV PRN (05:23)
[2022-03-28] MEDS: METOCLOPRAMIDE HCL 10 MG/2 ML VIAL IVP SCH ×4 (05:28→23:45)
[2022-03-28 06:44] LABS: CALCIUM 8.3 mg/dL (8.4-11.0); CREATININE 0.5 mg/dL (0.55-1.30)
[2022-03-28 07:07] LABS: BASOPHILS % (AUTO) 0.4 % (0.0-2.0); EOSINOPHILS # (AUTO) 0.1 K/uL (0.0-0.4); EOSINOPHILS % (AUTO) 1.3 % (0.0-4.0); HEMATOCRIT 27.1 % (36-48); HEMOGLOBIN 8.7 g/dL (12.0-16.0); LYMPHOCYTES # (AUTO) 1.3 K/uL (1.0-5.5); LYMPHOCYTES % (AUTO) 12.8 % (20.5-51.5); MEAN CORPUSCULAR HEMOGLOBIN 25 pg (27-31); MEAN CORPUSCULAR HGB CONC 32 % (32-36); MEAN CORPUSCULAR VOLUME 76 fL (79.0-98.0); MONOCYTES # (AUTO) 0.7 K/uL (0.0-1.0); MONOCYTES % (AUTO) 6.9 % (1.7-9.3); NEUTROPHILS # (AUTO) 7.7 K/uL (1.8-7.7); NEUTROPHILS % (AUTO) 78.6 % (40.0-70.0); PLATELET COUNT (AUTO) 321 K/uL (130-430); RED BLOOD CELL COUNT(AUTO) 3.56 MIL/uL (4.2-6.2); RED CELL DISTRIBUTION WIDTH 18.9 % (9.0-15.0); WHITE BLOOD COUNT (AUTO) 9.8 K/uL (4.8-10.8)
[2022-03-28] MEDS: levETIRAcetam 500 MG in NS 100 ML IV SCH ×2 (10:15→20:15)
[2022-03-28] MEDS: DOCUSATE SODIUM 100 MG/10 ML UDC PO SCH (10:15)
[2022-03-28] MEDS: QUEtiapine FUMARATE 25 MG TABLET PO SCH ×2 (10:15→20:15)
[2022-03-28] MEDS: POTASSIUM CHLORIDE 20 MEQ/PKT PACKET PO SCH (10:15)
[2022-03-28] MEDS: METHYLPREDNISOLONE SOD SUCC 40 MG/ML VIAL IVP SCH ×2 (10:15→20:15)
[2022-03-28] MEDS: FAMOTIDINE PF 20 MG/2 ML VIAL IVP SCH ×2 (10:15→20:15)
[2022-03-28] MEDS: ENOXAPARIN SODIUM 40 MG/0.4 ML SYRINGE SUBCUT SCH (10:15)
--- NOTE | 2022-03-28 12:00 | NUR ---
NEW ORDER FOR EEG ACKNOWLEDGED THIS AM. CHIMNEY SWEEPER ON UNIT. MADE AWARE OF EEG ORDERED. INFORMED BY SARAH THAT PT HAD EEG COMPLETED YESTERDAY. REVIEWED ORDER AND ORDER CHANGED TO COMPLETED AND DONE ON 03/23/22. SARAH CAME TO UNIT AND THEN ORDER CHANGED TO CANCELLED. CALLED TO DR. REYNOLDS, INQUIRED IF EEG NEEDS TO BE DONE, WAS INFORMED BY NOC RN THAT EEG DONE PRIOR WAS WHILE PT WAS ON SEDATION. SEDATION TURNED OFF THIS AM. DR. REYNOLDS INFORMED NO NEED FOR EEG AT THIS TIME, AND THAT THE EEG ONLY NEEDS TO BE DONE WEEKLY.
[2022-03-28] MEDS ORDERED: SCOPOLAMINE HYDROBROMIDE 1 MG PATCH .72 H (TRANSDERM-SCOP) TD SCH (13:00)
--- NOTE | 2022-03-28 14:11 | NUR ---
Dietitian Recommendations * Continue Nepro at 30 ml/hr (goal rate), Prosource BID, Free Water Flush: 100 ml Q8h via GT Provides daily (w/ D5NS, Prosource): 1620 kcal/day, 123 gm protein/day, and 997 ml free water/day Meets: 93% of estimated caloric needs and 107% of lower end of estimated protein needs * Continue Reglan per MD * If pt status changes and/or requires further nutrition intervention, please consult COOPER WERNER, RD Please refer to RD F/U for further details
--- NOTE | 2022-03-28 14:11 | NUR ---
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 Pt presented to ED c/o SOB and had full arrest in ER. Pt reported fever, chills, chest pain then had a seizure in ED. Pt was sent for CT head and coded. S/p chest tubes. Pt now unresponsive and transferred to ICU. Per physician notes, mild PEM noted. Subjective Information: RD attended ICU rounds. RN attested that the propofol is off and she is only on morphine for sedation. RD observed that the TF was running at 40 mL/hr but the diet is for 30mL/hr. According to EMR: she has been at the rate of 40mL/ hr since 03/27. RD alerted the RN of this discrepancy and he said he would check on it. The GRV have been documented under 90mL since 03/25. The patient still has her chest tubes in and there is confusion when they will be taken out as discussed in ICU meeting. RN reports no BM, however 1 BM documented in EMR. D5NS at 50ml (provides 204kcal/day), morphine at 1mg. RD witnessed pt on mech vent. Current TF prescription (w/ D5NS, Prosource) provides: 1920 kcal/day, 123 gm protein/day, and 997 ml free water/day -- this meets: 93% of estimated caloric needs and 107% upper end of estimated protein needs. Current Diet Order/Nutrition Support: Nepro at 30 ml/hr, Prosource TID, Free Water Flush: 100 ml Q8h via GT x 2 days NEW Pertinent Medications: Reglan, Solumedrol, Pepcid, Morphine, Colace, KCl 20 mEq pkt, D5W @50 NEW Pertinent Labs: BG 127 H, BUN 20 H - improving, WBC 9.8 - improving, H/H 8.7 L/27.1 L worsening Height (Feet) 5'4 PREVIOUS Weight 213 lbs/96.6kg (03/15) Weight (per bedscale) 228lbs/103.5kg -- questionable wt gain of 15lbs/7% change in 10 days (03/25) Body Mass Index 39.1 kg/m2 %IBW 190 [place]/Adjusted Body Weight 120#/ 54.5kg Weight Status Obese Gastrointestinal Symptoms Distended abdomen 03/25 per EMR Last BM Mar 25, 2022 x 1 per EMR review Difficulty With: Chewing, Swallowing Usual Diet At Home GTF Skin Integrity Comment: 03/25/22 per EMR - Thomas 11: Back skin tear, blister; perineal erythema Edema: non-pitting BUE noted 03/28 per EMR Current % PO: 0% - NPO NEW Estimated Energy Expenditure (kcals/day) -- needs adjusted d/t wt change 1733 (PSU >30 BMI for critical illness, vent -- Ve 9.4, Tmax 36.6) Estimated Protein Required (g/day) 82-109 (1.5-2 g/kg IBW for critical illness, BMI >30, vent) Estimated Fluid Required (l/day) per MD d/t COPD Problem/Etiology/Signs/Symptoms * Increased energy and protein expenditure r/t metabolic demands a/e/b estimated nutrient needs for critical illness, mechanical ventilation (Ongoing) * Swallowing difficulty r/t dysphagia a/e/b GT dependent (Ongoing) * Suboptimal EN support R/T risk for overfeeding AEB current TF prescription exceeds 144% of estimated caloric needs and meets 113% of upper end of estimated protein needs. (*on-going) Expected Outcomes/Goals Pt tolerates EN at goal, EN provides >95% estimated nutrient needs, nutrition-related labs trending WNL, skin integrity/weight maintenance, BM q 1-3 days Dietitian Recommendations * Continue Nepro at 30 ml/hr (goal rate), Prosource BID, Free Water Flush: 100 ml Q8h via GT Provides daily (w/ D5NS, Prosource): 1620 kcal/day, 123 gm protein/day, and 997 ml free water/day Meets: 93% of estimated caloric needs and 107% of lower end of estimated protein needs * Continue Reglan per MD * If pt status changes and/or requires further nutrition intervention, please consult COOPER
[2022-03-28] MEDS: D5/0.45 NS 1,000 ML IV SCH ×2 (15:21→23:46)
[2022-03-29] VITALS (28 sets, daily range): BP systolic 109–155
[2022-03-29] MEDS: IPRATROPIUM/ALBUTEROL SULFATE 3 ML AMPUL.NEB (DUONEB) INH SCH ×6 (02:57→23:49)
[2022-03-29] MEDS: METOCLOPRAMIDE HCL 10 MG/2 ML VIAL IVP SCH ×3 (05:01→17:02)
[2022-03-29 06:35] LABS: BASOPHILS # (AUTO) 0.1 K/uL (0.0-0.2); BASOPHILS % (AUTO) 0.7 % (0.0-2.0); EOSINOPHILS # (AUTO) 0.1 K/uL (0.0-0.4); EOSINOPHILS % (AUTO) 1.1 % (0.0-4.0); HEMATOCRIT 28.6 % (36-48); HEMOGLOBIN 9.4 g/dL (12.0-16.0); LYMPHOCYTES # (AUTO) 1.5 K/uL (1.0-5.5); LYMPHOCYTES % (AUTO) 14.2 % (20.5-51.5); MEAN CORPUSCULAR HEMOGLOBIN 25 pg (27-31); MEAN CORPUSCULAR HGB CONC 33 % (32-36); MEAN CORPUSCULAR VOLUME 76 fL (79.0-98.0); MONOCYTES # (AUTO) 0.7 K/uL (0.0-1.0); MONOCYTES % (AUTO) 6.3 % (1.7-9.3); NEUTROPHILS # (AUTO) 8.4 K/uL (1.8-7.7); NEUTROPHILS % (AUTO) 77.7 % (40.0-70.0); PLATELET COUNT (AUTO) 342 K/uL (130-430); RED BLOOD CELL COUNT(AUTO) 3.78 MIL/uL (4.2-6.2); WHITE BLOOD COUNT (AUTO) 10.8 K/uL (4.8-10.8)
[2022-03-29] MEDS: FAMOTIDINE PF 20 MG/2 ML VIAL IVP SCH ×2 (08:28→21:00)
[2022-03-29] MEDS: levETIRAcetam 500 MG in NS 100 ML IV SCH ×2 (08:28→20:59)
[2022-03-29] MEDS: DOCUSATE SODIUM 100 MG/10 ML UDC PO SCH (08:29)
[2022-03-29] MEDS: METHYLPREDNISOLONE SOD SUCC 40 MG/ML VIAL IVP SCH ×2 (08:29→21:00)
[2022-03-29] MEDS: POTASSIUM CHLORIDE 20 MEQ/PKT PACKET PO SCH (08:29)
[2022-03-29] MEDS: QUEtiapine FUMARATE 25 MG TABLET PO SCH ×2 (08:29→20:59)
[2022-03-29] MEDS: ENOXAPARIN SODIUM 40 MG/0.4 ML SYRINGE SUBCUT SCH (08:29)
[2022-03-29] MEDS ORDERED: FUROSEMIDE 40 MG/4 ML VIAL IVP ONE (08:30)
[2022-03-29 08:33] LABS: ALBUMIN 2.3 g/dL (3.4-4.8); CALCIUM 8.4 mg/dL (8.4-11.0); CREATININE 0.5 mg/dL (0.55-1.30); TOTAL BILIRUBIN 0.3 mg/dL (0.0-1.0)
--- NOTE | 2022-03-29 14:25 | NUR ---
PT SEEN BY DR. SHIPLEY THIS AM. CXR SEEN, FIO2 INCREASED BY RT TO 95%. LUNG SOUNDS WITH CRACKLES. REQUESTED LASIX BY DR. SHIPLEY. DR. SHIPLEY PLACED ORDER AND LASIX GIVEN WITH GOOD RESPONSE. 3.2 L REMOVED FROM MOON CATH. FIO2 WEANED TO 80%. DR. SANCHEZ ROUNDED THIS AM. UPDATED ON PT STATUS. BILATERAL CHEST TUBES REMOVED WITH 2 SUTURES PLACED TO EACH SIDE. PT TOLERATING CT REMOVED WELL WITH NO RESP DISTRESS OR CHANGE IN VS. ALL NEEDS ATTENDED TO. CALL LIGHT IN REACH. WILL CONT TO MONITOR.
--- NOTE | 2022-03-29 15:55 | NUR ---
Received report from ELLA Robertson and assumed patient care.
--- NOTE | 2022-03-29 16:42 | NUR ---
Dr. Willams rounded at bedside, MD is aware of most current situation and the removal of the chest tubes. Patient tolerated, and had no further complications. No additional orders noted at the moment, and will reinforce if needed throughout the shift.
--- NOTE | 2022-03-29 20:00 | NUR ---
Opening Pt in bed response to pain and randomly open eyes but not to commands. Pt is trach to vent. Tube feeding to Gtube. Carney draining samreen urine to gravity. SCDs in place. Will continue to monitor
--- NOTE | 2022-03-29 22:30 | NUR ---
BM Pt had large BM
[2022-03-30] VITALS (30 sets, daily range): BP systolic 96–167
--- NOTE | 2022-03-30 05:30 | NUR ---
BM Pt had moderate BM more formed
--- NOTE | 2022-03-30 06:10 | NUR ---
Emesis Pt had emesis. TF turned off and pt placed at 40 degree
--- NOTE | 2022-03-30 06:20 | NUR ---
Emesis Pt had another Emesis more bile color. TF still on hold
[2022-03-30 06:47] LABS: BASOPHILS # (AUTO) 0.1 K/uL (0.0-0.2); BASOPHILS % (AUTO) 0.5 % (0.0-2.0); EOSINOPHILS # (AUTO) 0.5 K/uL (0.0-0.4); HEMATOCRIT 31.1 % (36-48); HEMOGLOBIN 9.8 g/dL (12.0-16.0); LYMPHOCYTES # (AUTO) 1.6 K/uL (1.0-5.5); LYMPHOCYTES % (AUTO) 10.5 % (20.5-51.5); MEAN CORPUSCULAR HEMOGLOBIN 24 pg (27-31); MEAN CORPUSCULAR HGB CONC 32 % (32-36); MEAN CORPUSCULAR VOLUME 75 fL (79.0-98.0); MONOCYTES # (AUTO) 1.2 K/uL (0.0-1.0); MONOCYTES % (AUTO) 8.1 % (1.7-9.3); NEUTROPHILS % (AUTO) 77.9 % (40.0-70.0); PLATELET COUNT (AUTO) 344 K/uL (130-430); RED BLOOD CELL COUNT(AUTO) 4.14 MIL/uL (4.2-6.2); RED CELL DISTRIBUTION WIDTH 19.3 % (9.0-15.0); WHITE BLOOD COUNT (AUTO) 15.4 K/uL (4.8-10.8)
[2022-03-30 07:13] LABS: ALBUMIN 2.3 g/dL (3.4-4.8); CREATININE 0.61 mg/dL (0.55-1.30); TOTAL BILIRUBIN 0.5 mg/dL (0.0-1.0)
[2022-03-30] MEDS: IPRATROPIUM/ALBUTEROL SULFATE 3 ML AMPUL.NEB (DUONEB) INH SCH ×5 (07:27→23:35)
[2022-03-30] MEDS ORDERED: FAMOTIDINE PF 20 MG/2 ML VIAL ONE (08:35)
[2022-03-30] MEDS: FAMOTIDINE PF 20 MG/2 ML VIAL IVP SCH ×2 (08:38→20:29)
[2022-03-30] MEDS: POTASSIUM CHLORIDE 20 MEQ/PKT PACKET PO SCH (08:42)
[2022-03-30] MEDS: QUEtiapine FUMARATE 25 MG TABLET PO SCH ×2 (08:42→20:29)
[2022-03-30] MEDS: levETIRAcetam 500 MG in NS 100 ML IV SCH ×2 (08:42→20:31)
[2022-03-30] MEDS: DOCUSATE SODIUM 100 MG/10 ML UDC PO SCH (08:42)
[2022-03-30] MEDS: ENOXAPARIN SODIUM 40 MG/0.4 ML SYRINGE SUBCUT SCH (08:43)
--- NOTE | 2022-03-30 10:00 | NUR ---
1-LEGACY CALL WAS RECEIVED, ASKING FOR UPDATES ON THE PATIENT'S STATUS, LAB VALUES.
--- NOTE | 2022-03-30 10:50 | NUR ---
MD DR CUMMINGS IN THE PT'S ROOM, MADE AWARE OF G.I. ISSUES, LARGE EMESIS. NEW ORDERS RECEIVED.
[2022-03-30] MEDS ORDERED: KCL 40 mEq in 100 mL (PREMIX) 100 ML IV ONE (11:00)
[2022-03-30] MEDS ORDERED: METOCLOPRAMIDE HCL 10 MG/2 ML VIAL IVP PRN (11:15)
[2022-03-30] MEDS ORDERED: ONDANSETRON HCL 4 MG/2 ML VIAL IVP PRN (11:15)
[2022-03-30] MEDS ORDERED: METOCLOPRAMIDE HCL 10 MG/2 ML VIAL IVP ONE (11:15)
--- NOTE | 2022-03-30 11:15 | NUR ---
XRAY KUB DONE AT BEDSIDE.
[2022-03-30] MEDS: D5LR 1,000 ML IV SCH (11:16)
[2022-03-30] MEDS: METOCLOPRAMIDE HCL 10 MG/2 ML VIAL IVP SCH ×5 (12:07→23:20)
--- NOTE | 2022-03-30 14:35 | NUR ---
TEST ABDOMINAL ULTRA SOUND DONE AT BEDSIDE.
[2022-03-30] MEDS: cefTRIAXone 1 GM in D5W 50 ML IV SCH (14:44)
--- NOTE | 2022-03-30 15:29 | NUR ---
Discharge Planning: DCP faxed pt referral to [facility] [phone] DCP to follow up
--- NOTE | 2022-03-30 19:30 | NUR ---
RECEIVED LYING IN BED, OPENS EYES, NONRESPONSIVE TO VERBAL STIMULI. TRACHE TO VENT, ac 14, FIO2 55%, TV 450 AND PEEP 5. BILATERAL BASES DIMINISHED. SAT WDL, NO RESPIRATORY DISTRESS. RUBBER TURNER SHOWS NSR. IVF OF D5LR IS INFUSING AT 59 ML /HR VIA RUE PICC. G-TUBE FEEDING OF NEPHRO AT 30 ML/HR. NO RESIDUAL. MOON INTACT AND PATENT, DRAINING WELL. TEMP 99.2.
[2022-03-30] MEDS: metroNIDAZOLE 500 mg/NS 100 ML IV SCH (20:31)
[2022-03-31] VITALS (32 sets, daily range): BP systolic 116–146
[2022-03-31] MEDS: IPRATROPIUM/ALBUTEROL SULFATE 3 ML AMPUL.NEB (DUONEB) INH SCH ×6 (03:26→22:58)
[2022-03-31 07:01] LABS: CALCIUM 8.3 mg/dL (8.4-11.0); CREATININE 0.54 mg/dL (0.55-1.30)
--- NOTE | 2022-03-31 07:30 | NUR ---
RECEIVED PATIENT FROM NIGHT ELLA BOONE. PT. TRAY TRACHEOSTOMY TO VENTILATOR, AC FiO2 55%, RATE 20, 450 MLS. TV, +5. NEPRO AT 30 MLS/HR.. BM X 1. FOR SUTURE REMOVAL OF THE OLD CHEST TUBE SITES ON 04/05/2022. IVF D5LR AT 50 MLS/HR
--- NOTE | 2022-03-31 07:49 | NUR ---
DR. SHIPLEY (CARDIOLOGY). NO NEW ORDER.
[2022-03-31 07:57] LABS: BASOPHILS # (AUTO) 0.1 K/uL (0.0-0.2); BASOPHILS % (AUTO) 0.8 % (0.0-2.0); EOSINOPHILS # (AUTO) 0.5 K/uL (0.0-0.4); EOSINOPHILS % (AUTO) 4.4 % (0.0-4.0); HEMATOCRIT 28.7 % (36-48); HEMOGLOBIN 9.2 g/dL (12.0-16.0); LYMPHOCYTES # (AUTO) 1.5 K/uL (1.0-5.5); LYMPHOCYTES % (AUTO) 13.8 % (20.5-51.5); MEAN CORPUSCULAR HEMOGLOBIN 24 pg (27-31); MEAN CORPUSCULAR HGB CONC 32 % (32-36); MEAN CORPUSCULAR VOLUME 74 fL (79.0-98.0); MONOCYTES % (AUTO) 9.3 % (1.7-9.3); NEUTROPHILS # (AUTO) 7.9 K/uL (1.8-7.7); NEUTROPHILS % (AUTO) 71.7 % (40.0-70.0); PLATELET COUNT (AUTO) 253 K/uL (130-430); RED BLOOD CELL COUNT(AUTO) 3.87 MIL/uL (4.2-6.2); RED CELL DISTRIBUTION WIDTH 19.4 % (9.0-15.0); WHITE BLOOD COUNT (AUTO) 10.9 K/uL (4.8-10.8)
[2022-03-31] MEDS: levETIRAcetam 500 MG in NS 100 ML IV SCH ×2 (08:47→21:21)
[2022-03-31] MEDS: metroNIDAZOLE 500 mg/NS 100 ML IV SCH ×2 (08:48→21:20)
[2022-03-31] MEDS: DOCUSATE SODIUM 100 MG/10 ML UDC PO SCH (09:10)
[2022-03-31] MEDS: QUEtiapine FUMARATE 25 MG TABLET PO SCH (09:11)
[2022-03-31] MEDS: POTASSIUM CHLORIDE 20 MEQ/PKT PACKET PO SCH (09:11)
[2022-03-31] MEDS: FAMOTIDINE PF 20 MG/2 ML VIAL IVP SCH ×2 (09:11→21:21)
[2022-03-31] MEDS: ENOXAPARIN SODIUM 40 MG/0.4 ML SYRINGE SUBCUT SCH (09:12)
[2022-03-31] MEDS ORDERED: POTASSIUM CHLORIDE 20 MEQ/PKT PACKET GT ONE (09:45)
[2022-03-31] MEDS ORDERED: CHOLECALCIFEROL (VITAMIN D3) 2,000 UNIT TABLET PO ONE (10:00)
[2022-03-31] MEDS: D5LR 1,000 ML IV SCH (11:01)
[2022-03-31 11:07] LABS: FOLATE (FOLIC ACID) >20.0 ng/mL (>3.0)
[2022-03-31] MEDS: METOCLOPRAMIDE HCL 10 MG/2 ML VIAL IVP SCH ×2 (12:45→17:39)
--- NOTE | 2022-03-31 14:57 | NUR ---
DR. CUMMINGS CAME OKAY TO TRANSFER TO TELEMETRY.
[2022-03-31] MEDS: cefTRIAXone 1 GM in D5W 50 ML IV SCH (15:06)
[2022-03-31 15:41] LABS: TOTAL IRON BIND. CAPACITY 299 ug/dL (250-450)
--- NOTE | 2022-03-31 17:00 | NUR ---
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 Pt presented to ED c/o SOB and had full arrest in ER. Pt reported fever, chills, chest pain then had a seizure in ED. Pt was sent for CT head and coded. S/p chest tubes. Pt now unresponsive and transferred to ICU. Per physician notes, mild PEM noted. Subjective Information: Group Home Supervisor rounded to pt bedside, pt still unresponsive. CBW 221# via bedscale -- questionable wt loss of 8lbs/4% wt change (severe) since last visit (5 days ago 03/25). Group Home Supervisor witnessed Nepro TF running at 30ml/hr, 182ml infused at time of visit. Per RN report, TF stopped yesterday morning d/t pt vomiting and resumed around 1700 during PM shift. LBM 03/31 -- moderate amount of loose, yellow diarrhea. Group Home Supervisor witnessed D5LR infusing at 50ml (provides 204kcal/day). Group Home Supervisor witnessed Morphine not infusing at time of visit, D/C per RN report. Chest tubes removed 03/29, pending transfer to Telemetry unit per ICU rounds. Group Home Supervisor witnessed pt on [facility] vent -- Ve 13.4 at time of visit. Current TF prescription (w/ D5LR, Prosource) provides: 1620 kcal/day, 123 gm protein/day, and 997 ml free water/day -- this meets: 79% of estimated caloric needs and 113% upper end of estimated protein needs. Current Diet Order/Nutrition Support: Nepro at 30 ml/hr, Prosource BID, Free Water Flush: 100 ml Q8h via GT x 8 days NEW Pertinent Medications: Reglan, Solumedrol, Pepcid, Colace, D5LR @ 50ml NEW Pertinent Labs: BG 118 H - improving, BUN 18 WNL - improving, WBC 10.9 H - worsening, H/H 9.2 L/28.7 L improving Height (Feet) 5'4 PREVIOUS Weight 228lbs/103.5kg (03/25), 213 lbs/96.6kg (03/15) NEW Weight (per bedscale) 221#/100kg -- questionable wt loss of 8lbs/4% wt change since last visit (5 days ago 03/25) NEW Body Mass Index 37.9 kg/m2 NEW %IBW 184 Canmer/Adjusted Body Weight 120#/ 54.5kg Weight Status Obese Gastrointestinal Symptoms Distended abdomen 03/25 per EMR Last BM Mar 31, 2022 x 1 Difficulty With: Chewing, Swallowing Usual Diet At Home GTF Skin Integrity Comment: 03/31/22 per EMR - Thomas 19: Back skin tear, blister; perineal erythema Edema: non-pitting BUE noted 03/31 per EMR Current % PO: 0% - NPO NEW Estimated Energy Expenditure (kcals/day) -- needs adjusted d/t wt change 2050 (PSU >30 BMI for critical illness, vent -- Ve 13.4, Tmax 37.6) Estimated Protein Required (g/day) 82-109 (1.5-2 g/kg IBW for critical illness, BMI >30, vent) Estimated Fluid Required (l/day) per MD d/t COPD Problem/Etiology/Signs/Symptoms * Increased energy and protein expenditure r/t metabolic demands a/e/b estimated nutrient needs for critical illness, mechanical ventilation (Ongoing) * Swallowing difficulty r/t dysphagia a/e/b GT dependent (Ongoing) * Suboptimal EN support R/T risk for overfeeding AEB current TF prescription exceeds 144% of estimated caloric needs and meets 113% of upper end of estimated protein needs. (RESOLVED) Expected Outcomes/Goals Pt tolerates EN at goal, EN provides >95% estimated nutrient needs, nutrition-related labs trending WNL, skin integrity/weight maintenance, BM q 1-3 days NEW Dietitian Recommendations * Nepro at 40 ml/hr (goal rate), Prosource BID, Free Water Flush: 100 ml Q8h via GT Provides daily (w/ D5LR, Prosource): 2052 kcal, 108 gm protein, and 997 ml free water Meets: 100% of estimated caloric needs and 99% of upper end of estimated protein needs * Continue Reglan per MD * If pt status changes and/or requires further nutrition intervention, please consult RD Mod Risk Follow Up: 3-5 days Follow Up By: Apr 05 2022 Co-Signed By: Sydni Schaefer MS, RD
--- NOTE | 2022-03-31 17:01 | NUR ---
NEW Dietitian Recommendations * Nepro at 40 ml/hr (goal rate), Prosource BID, Free Water Flush: 100 ml Q8h via GT Provides daily (w/ D5LR, Prosource): 2052 kcal, 108 gm protein, and 997 ml free water Meets: 100% of estimated caloric needs and 99% of upper end of estimated protein needs * Continue Reglan per MD * If pt status changes and/or requires further nutrition intervention, please consult RD LP, MS, RD Please refer to Nutrition F/U for details.
--- NOTE | 2022-03-31 20:03 | NUR ---
REPORT GIVEN TO NIGHT ELLA QUINTERO IN TELEMETRY, ROOM 116-A. PT. TRANSPORTED BY BED BROUGHT BY ELLA STEVENS WITH RT. NEPRO AT 40MLS/HR +FWF 100 MLS Q8H + PROSOURCE BID BY PEG. TRACHE TO VENT. URINE BY MOON CATHETER. K+ REPLACED TODAY. NO INQUIRIES. IVF D5LR AT 50 MLS/HR. RIGHT UPPER PICC LINE.
--- NOTE | 2022-03-31 20:22 | NUR ---
RECEIVED FROM ICU , EYES OPEN ,TRACH TO VENT AC450/20/50/PEEP5, DOUBLE LUMEN PICC TO ESTEVAN ,FLUSHED WITH NO BLOOD RETURN , MOON INPLACE ,SCD TO CHASITY LOWER EXTREMITIES IN PLACE VITAL SIGNS STABLE. BP 121/46, HR 94 , [id number] RR20; TEMP 97.4 TEMPORAL. WILL CONTINUE TO MONITOR
--- NOTE | 2022-03-31 21:55 | NUR ---
CALL OUT TO DR CUMMINGS TO NOTIFY OF ABNORMAL BLOOD CULTURE RESULTS, EXHIBITION CARVER MADE AWARE , AWAITING CALL BACK FROM
[2022-04-01] MEDS: METOCLOPRAMIDE HCL 10 MG/2 ML VIAL IVP SCH ×4 (00:50→18:24)
[2022-04-01] MEDS: IPRATROPIUM/ALBUTEROL SULFATE 3 ML AMPUL.NEB (DUONEB) INH SCH ×5 (02:46→21:16)
[2022-04-01] MEDS: D5LR 1,000 ML IV SCH (03:15)
[2022-04-01 07:00] VITALS: BP_SYST 130
[2022-04-01 08:00] VITALS: BP_SYST 130
[2022-04-01] MEDS: metroNIDAZOLE 500 mg/NS 100 ML IV SCH ×2 (09:00→20:56)
[2022-04-01] MEDS ORDERED: CHOLECALCIFEROL (VITAMIN D3) 2,000 UNIT TABLET PO SCH (09:00)
[2022-04-01] MEDS: DOCUSATE SODIUM 100 MG/10 ML UDC PO SCH (09:00)
[2022-04-01] MEDS: POTASSIUM CHLORIDE 20 MEQ/PKT PACKET PO SCH (09:03)
[2022-04-01] MEDS: ENOXAPARIN SODIUM 40 MG/0.4 ML SYRINGE SUBCUT SCH (09:03)
[2022-04-01] MEDS: FAMOTIDINE PF 20 MG/2 ML VIAL IVP SCH ×2 (09:03→21:01)
[2022-04-01] MEDS: cefTRIAXone 1 GM in D5W 50 ML IV SCH ×2 (09:04→09:10)
[2022-04-01] MEDS ORDERED: FUROSEMIDE 40 MG/4 ML VIAL IVP ONE (09:45)
[2022-04-01] MEDS: KCL 40 mEq in D5W 1000 mL 1,000 ML IV SCH ×2 (11:00→21:00)
[2022-04-01 11:05] LABS: BASOPHILS # (AUTO) 0.1 K/uL (0.0-0.2); BASOPHILS % (AUTO) 0.9 % (0.0-2.0); EOSINOPHILS # (AUTO) 0.5 K/uL (0.0-0.4); EOSINOPHILS % (AUTO) 4.5 % (0.0-4.0); HEMOGLOBIN 8.5 g/dL (12.0-16.0); LYMPHOCYTES # (AUTO) 1.2 K/uL (1.0-5.5); LYMPHOCYTES % (AUTO) 11.9 % (20.5-51.5); MEAN CORPUSCULAR HEMOGLOBIN 24 pg (27-31); MEAN CORPUSCULAR HGB CONC 33 % (32-36); MEAN CORPUSCULAR VOLUME 74 fL (79.0-98.0); MONOCYTES # (AUTO) 0.8 K/uL (0.0-1.0); NEUTROPHILS # (AUTO) 7.7 K/uL (1.8-7.7); NEUTROPHILS % (AUTO) 74.7 % (40.0-70.0); PLATELET COUNT (AUTO) 225 K/uL (130-430); WHITE BLOOD COUNT (AUTO) 10.3 K/uL (4.8-10.8)
[2022-04-01 11:15] LABS: ALBUMIN 1.9 g/dL (3.4-4.8); CALCIUM 7.8 mg/dL (8.4-11.0); CREATININE 0.53 mg/dL (0.55-1.30); TOTAL BILIRUBIN 0.2 mg/dL (0.0-1.0)
[2022-04-01 11:32] VITALS: BP_SYST 130
[2022-04-01] MEDS: SOD FERRIC GLUC COMPLEX/SUC 125 MG in NS 100 ML IV SCH (12:00)
[2022-04-01] MEDS: levETIRAcetam 500 MG in NS 100 ML IV SCH ×2 (12:30→20:56)
[2022-04-01 15:36] VITALS: BP_SYST 125
--- NOTE | 2022-04-01 19:30 | NUR ---
OPENING NOTE Received report from day shift. Pt is awake, eyes open lying in bed. No s/s of respiratory distress, trach to vent. G tube intact with feeding running at ordered rate. Carney catheter intact draining by gravity. ESTEVAN picc line intact with fluids running at ordered rate. Fall and safety precautions in place with bed in lowest position, bed alarm on, and call light within reach
[2022-04-01 20:00] VITALS: BP_SYST 119
[2022-04-01] MEDS ORDERED: MAGNESIUM SULFATE 50 ML IV ONE (20:00)
[2022-04-02] MEDS: METOCLOPRAMIDE HCL 10 MG/2 ML VIAL IVP SCH ×5 (00:07→23:41)
--- NOTE | 2022-04-02 00:15 | NUR ---
ROUNDS Pt is lying in bed, eyes closed. No s/s of acute distress. VSS. Fall and safety checks in place
[2022-04-02 00:50] VITALS: BP_SYST 137
[2022-04-02] MEDS: IPRATROPIUM/ALBUTEROL SULFATE 3 ML AMPUL.NEB (DUONEB) INH SCH ×7 (04:26→22:30)
[2022-04-02] MEDS: KCL 40 mEq in D5W 1000 mL 1,000 ML IV SCH ×2 (06:32→17:00)
--- NOTE | 2022-04-02 07:10 | NUR ---
OPENING RECEIVE SBAR FROM NIGHT NURSE. PATIENT IN BED WITH EYES CLOSE, MECH VENT SETTING RUNNING ORDERED, RESPIRATIONS ARE EVEN AND NONE LABORED, BED IN LOW AND LOCK POSITION, CALL LIGHT WITHIN REACH
[2022-04-02 07:22] LABS: BASOPHILS % (AUTO) 0.3 % (0.0-2.0); EOSINOPHILS # (AUTO) 0.4 K/uL (0.0-0.4); EOSINOPHILS % (AUTO) 3.3 % (0.0-4.0); HEMATOCRIT 28.6 % (36-48); HEMOGLOBIN 9.3 g/dL (12.0-16.0); LYMPHOCYTES # (AUTO) 1.5 K/uL (1.0-5.5); LYMPHOCYTES % (AUTO) 13.9 % (20.5-51.5); MEAN CORPUSCULAR HEMOGLOBIN 24 pg (27-31); MEAN CORPUSCULAR HGB CONC 33 % (32-36); MEAN CORPUSCULAR VOLUME 74 fL (79.0-98.0); MONOCYTES % (AUTO) 9.3 % (1.7-9.3); NEUTROPHILS # (AUTO) 7.8 K/uL (1.8-7.7); NEUTROPHILS % (AUTO) 73.2 % (40.0-70.0); PLATELET COUNT (AUTO) 245 K/uL (130-430); RED BLOOD CELL COUNT(AUTO) 3.87 MIL/uL (4.2-6.2); RED CELL DISTRIBUTION WIDTH 18.9 % (9.0-15.0); WHITE BLOOD COUNT (AUTO) 10.6 K/uL (4.8-10.8)
[2022-04-02 07:45] LABS: CALCIUM 8.5 mg/dL (8.4-11.0); CREATININE 0.55 mg/dL (0.55-1.30)
[2022-04-02] MEDS ORDERED: COMMUNICATION ORDER XX ONE (07:45)
[2022-04-02 08:00] VITALS: BP_SYST 131
[2022-04-02] MEDS ORDERED: cloNIDine HCL 0.1 MG TABLET GT PRN (08:01)
--- NOTE | 2022-04-02 09:00 | NUR ---
NURSE NOTES PROVIDED BED BATH AND REPOSITION PATIENT. PATIENT TOLERATED WELL
[2022-04-02] MEDS: CHOLECALCIFEROL (VITAMIN D3) 2,000 UNIT TABLET GT SCH (09:58)
[2022-04-02] MEDS: ENOXAPARIN SODIUM 40 MG/0.4 ML SYRINGE SUBCUT SCH (09:58)
[2022-04-02] MEDS: DOCUSATE SODIUM 100 MG/10 ML UDC GT SCH (09:58)
[2022-04-02] MEDS: FAMOTIDINE PF 20 MG/2 ML VIAL IVP SCH ×2 (09:59→22:17)
[2022-04-02] MEDS: POTASSIUM CHLORIDE 20 MEQ/PKT PACKET GT SCH (09:59)
[2022-04-02] MEDS: metroNIDAZOLE 500 mg/NS 100 ML IV SCH ×2 (10:03→22:17)
[2022-04-02] MEDS: levETIRAcetam 500 MG in NS 100 ML IV SCH ×2 (10:05→22:18)
--- NOTE | 2022-04-02 11:26 | NUR ---
MD DR. CUMMINGS AT BEDSIDE EXAMINING PATIENT. PATIENT'S DAUGHTER IN THE ROOM
[2022-04-02 11:35] VITALS: BP_SYST 118
[2022-04-02] MEDS: SOD FERRIC GLUC COMPLEX/SUC 125 MG in NS 100 ML IV SCH (12:15)
--- NOTE | 2022-04-02 12:25 | NUR ---
MD DR. REYNOLDS AT BEDSIDE TALKING TO PATIENT'S FAMILY.
[2022-04-02] MEDS: cefTRIAXone 1 GM in D5W 50 ML IV SCH (14:51)
--- NOTE | 2022-04-02 15:48 | NUR ---
FEEDING JPROVIDED NEW BOTTLE OF GTUBE FEEDING, 0 RESIDUAL, FLUSHED FREELY, PROVIDED PROSOURCE, FLUSHED FREELY. GTUBE RUNNING ORDERED.
[2022-04-02 16:00] VITALS: BP_SYST 144
--- NOTE | 2022-04-02 16:40 | NUR ---
PICC LINE INFORMED DR CUMMINGS THAT RT ARM THAT HAS PICC LINE IS RED AND SWOLLEN. STOPPED IVF'S, NEW ORDERS RECEIVED. ELEVATED ARM
--- NOTE | 2022-04-02 16:52 | NUR ---
CONSENT FOR NEW PICC SPOKE TO DAUGHTER JOSE DAVID Howard RE PICC LINE. ASK FOR CONSENT FOR A NEW PICC INSERTION. DAUGHTER AGREED. SECOND RN VERIFIED CONSENT
[2022-04-02 18:28] LABS: PROTHROMBIN TIME 10.2 SECS (9.5-12.5)
--- NOTE | 2022-04-02 18:28 | NUR ---
PAGED DR. CUMMINGS RE AHMETUBE ORDER FOR K REPLACEMENT.
--- NOTE | 2022-04-02 18:47 | NUR ---
/ Dary SPOKE TO DR. CUMMINGS REGARDING LOW K. NO MED ORDERS RECEIVE BUT NEEDS CMP AM LABS TOMORROW
[2022-04-02 19:00] VITALS: BP_SYST 135
--- NOTE | 2022-04-02 19:15 | NUR ---
change of shift.pt.presents isolation status;contact:+b/cx's.pt.presents trach/vent.vent settings:tv:450,fio2%:40%,a/c;20, p:5.02-sat%=98%.pt.presents g-tube:g-tube feed;nepro;rate:40ml/hr.pt.presents picc line;possible infiltration. apprised of the picc line status. ordered d/c picc-line.pt.presents paredes cath;intact;patent.general;status stable.respiratory status stable.call light/telephone w/in access of the pt.
--- NOTE | 2022-04-02 19:21 | NUR ---
CLOSING PROVIDED SBAR TO NIGHT NURSE. PATIENT IN BED , MECH VENT SETTING RUNNING ORDERED, GTUBE FEEDING RUNNING AT 40ML/HR ( ORDERED), MOON CATH IN PALCE, BED IN LOW AND LOCK POSITION. ENDORSED TO NIGHT NURSE TO D/C THE PICC LINE
[2022-04-02 20:00] VITALS: BP_SYST 135
--- NOTE | 2022-04-02 20:00 | NUR ---
pt.assessed.v/s assessed values wnl.trach intact.i have attended to the oral/trach care/suction:02-sun%=98%.g-tube intact,paredes cath intact.per flacc pain mgx pt.absent facial grimaces/body posturing.pt.assessed for cleanliness.pt.repositioned. call light/telephone placed w/in access of the pt.
--- NOTE | 2022-04-02 21:00 | NUR ---
2100p medications:ivp/ivpb held.to attempte to re-establish peripheral iv access.@this hour.
--- NOTE | 2022-04-02 22:00 | NUR ---
re-established iv access location;lt.hand;22g.i have administered ivp/ivpb medications;ivp:reglan/pepcid.ivpb;keppra/ flagyl.
--- NOTE | 2022-04-02 23:00 | NUR ---
shelbi ;picc line/mid-line nsg telephoned the mst:unit to clarify the d/c picc-line order.i conveyed to shelbi the us:doppler study results all veins absent thrombus;opacity;circulation present.i conveyed to shelbi the picc-line length;44cm.i assessed the opacity picc-line x2 lumens;blood return manifested.shelbi;picc-line/mid-line nsg concluded that the picc-line was intact. paged apprised of the conclusion of picc-line and the study results:us:doppler study.picc-line to remain in place.
--- NOTE | 2022-04-03 | NUR ---
pt.assessed.v/s assessed values wnl.trach intact.i have attended to the oral/trach care/suction:02-sun%=98%.g-tube,picc-ga paredes cath intact.per flacc pain mgx pt.absent facial grimaces/body posturing.pt.assessed for cleanliness pt.repositioned.call light/telephone placed w/in access of the pt.
[2022-04-03 00:42] VITALS: BP_SYST 144
--- NOTE | 2022-04-03 02:00 | NUR ---
pt.assessed.trach intact.i have attended to the oral/trach care/suction.o2-sat%=98%.picc-line,g-tube,paredes cath intact;patent. per flacc pain mgx pt.absent facial grimaces/body posturing.pt.assessed for cleanliness.pt.repositioned.call light/telephone w/in access of the pt.
[2022-04-03] MEDS: IPRATROPIUM/ALBUTEROL SULFATE 3 ML AMPUL.NEB (DUONEB) INH SCH ×6 (02:45→23:00)
--- NOTE | 2022-04-03 04:00 | NUR ---
pt.assessed.trach intact.i have attended to the oral/trach care/suction.o2-sat%=98%.g-tube,picc-line,paredes cath intact; patent.per flacc pain mgx pt.absent facial grimaces/body posturing.pt.assessed for cleanliness.pt.repositioned.jesenia light/ telephone placed w/in access of the pt.
[2022-04-03] MEDS: METOCLOPRAMIDE HCL 10 MG/2 ML VIAL IVP SCH ×3 (05:45→17:38)
--- NOTE | 2022-04-03 06:00 | NUR ---
pt.assessed.trach intact.oral/trach care attende to.o2-sat%=98%.per flacc pain mgx pt.absent facial grimaces/body posturing. picc-line,g-tube,paredes cath intact;patent.i have attended to wound care/dsg changes.g-tube dsg changed.call light/telephone placed w/in access of the pt.
--- NOTE | 2022-04-03 07:10 | NUR ---
OPENING RECEIVE SBAR FROM NIGHT NURSE. PATIENT IN BED WITH EYES CLOSED, RESPIRATIONS ARE EVEN AND NON LABORED, MECH VENT SETTING RUNNING ORDERED, GTUBE FEEDING AND IV RUNNING ORDERED. BED IN LOW AND LOCK POSITION. HEELS FLOATING ,CALL LIGHT WITHIN REACH
[2022-04-03 07:15] LABS: BASOPHILS # (AUTO) 0.1 K/uL (0.0-0.2); BASOPHILS % (AUTO) 0.5 % (0.0-2.0); EOSINOPHILS # (AUTO) 0.5 K/uL (0.0-0.4); EOSINOPHILS % (AUTO) 4.7 % (0.0-4.0); HEMOGLOBIN 9.3 g/dL (12.0-16.0); LYMPHOCYTES # (AUTO) 1.8 K/uL (1.0-5.5); LYMPHOCYTES % (AUTO) 17.2 % (20.5-51.5); MEAN CORPUSCULAR HEMOGLOBIN 24 pg (27-31); MEAN CORPUSCULAR HGB CONC 32 % (32-36); MEAN CORPUSCULAR VOLUME 75 fL (79.0-98.0); MONOCYTES # (AUTO) 0.9 K/uL (0.0-1.0); NEUTROPHILS % (AUTO) 68.6 % (40.0-70.0); PLATELET COUNT (AUTO) 273 K/uL (130-430); RED BLOOD CELL COUNT(AUTO) 3.87 MIL/uL (4.2-6.2); RED CELL DISTRIBUTION WIDTH 19.6 % (9.0-15.0); WHITE BLOOD COUNT (AUTO) 10.2 K/uL (4.8-10.8)
[2022-04-03 07:25] VITALS: BP_SYST 140
[2022-04-03 08:00] VITALS: BP_SYST 140
[2022-04-03 08:25] LABS: ALBUMIN 2.2 g/dL (3.4-4.8); CALCIUM 8.6 mg/dL (8.4-11.0); CREATININE 0.51 mg/dL (0.55-1.30); TOTAL BILIRUBIN 0.3 mg/dL (0.0-1.0)
--- NOTE | 2022-04-03 08:37 | NUR ---
MD/ CHEST TUBE INSERTION SITE DR. RUBI AT BEDSIDE EXAMING PT. CHEST TUBE INSERTIONS SITE CHECK. PER HE WILL NEED TO REMOVE INCISION BEFORE D/C
--- NOTE | 2022-04-03 09:48 | NUR ---
LOW POTASSIUM CALLED DR CUMMINGS SPOKE WITH KEVAN REGARDING LOW POTASSIUM, SHE WILL PAGE MD
[2022-04-03] MEDS: CHOLECALCIFEROL (VITAMIN D3) 2,000 UNIT TABLET GT SCH (09:56)
[2022-04-03] MEDS: POTASSIUM CHLORIDE 20 MEQ/PKT PACKET GT SCH ×2 (09:56→22:09)
[2022-04-03] MEDS: FAMOTIDINE PF 20 MG/2 ML VIAL IVP SCH ×2 (09:56→22:11)
[2022-04-03] MEDS: metroNIDAZOLE 500 mg/NS 100 ML IV SCH ×2 (09:57→22:10)
[2022-04-03] MEDS: DOCUSATE SODIUM 100 MG/10 ML UDC GT SCH (09:57)
[2022-04-03] MEDS: levETIRAcetam 500 MG in NS 100 ML IV SCH ×2 (09:57→22:10)
[2022-04-03] MEDS: ENOXAPARIN SODIUM 40 MG/0.4 ML SYRINGE SUBCUT SCH (09:58)
--- NOTE | 2022-04-03 10:09 | NUR ---
MD DR CUMMINGS RETURNED CALL, BUT SPOKE WITH [email or web address]. HE STATED THAT UNLESS IT IS AN EMERGENCY HE WILL BE IN LATER. WILL INFORM OF LOW POTASSIUM WHEN HE IS IN THE HOSPITAL
[2022-04-03 12:00] VITALS: BP_SYST 138
[2022-04-03] MEDS ORDERED: MAGNESIUM SULFATE 50 ML IV ONE (12:15)
[2022-04-03] MEDS: SOD FERRIC GLUC COMPLEX/SUC 125 MG in NS 100 ML IV SCH (12:54)
[2022-04-03] MEDS: KCL 40 mEq in D5W 1000 mL 1,000 ML IV SCH ×2 (13:13→23:00)
--- NOTE | 2022-04-03 14:30 | NUR ---
WOUND EVALUATION: Wound Consult received from Dr. Willams. Thank you, Dr. Willams, for the consult. Patient received in a Gonvick Bed with an Atmos-Air 9000 mattress, awake, alert, nonverbal, nonresponsive to verbal commands. Patient is unable to turn independently. Thomas Score is a 10. Past Medical History: Chronic Hypoxic Respiratory Failure, COPD, CAD, Hypertension, Seizure Disorder, history of Intracerebral Hemorrhage, Hyperlipidemia, Obesity, Schizo-Affective disorder, Dysphagia, G-tube feeding, Right Shoulder Surgery, Left Femur Fracture. Recent Labs: WBC 10.2, RBC 3.87, hemoglobin 9.3, hematocrit 29.0, potassium 3.4, BUN 24, creatinine 0.51, glucose 110, alkaline phosphatase 148, albumin 2.2, PTT 24.7, D-dimer 1360. Microbiology: Blood culture results x4 negative. Blood culture results x2 in progress. Urine culture results negative x2. Later Urine culture results positive for yeast. Tracheal aspirate sputum culture results negative. Later Tracheal aspirate sputum culture results positive for Pseudomonas aeruginosa. Intrinsic factors that delay wound healing: Chronic Hypoxic Respiratory Failure, COPD, CAD, Hypoalbuminemia. Extrinsic factors that delay wound healing: Immobility. Wound Assessment: 1. Buttock (Intergluteal Cleft), Wound/blister, present on admission. Site now has 100% pink scar tissue. No odor, no drainage. Measures 0.4 cm x 0.3 cm. Recommend: Cleanse site with normal saline. Apply Calmoseptine cream to site. Cover with Sacral foam dressing. Perform site care daily, and as needed for dressing soiling or dislodgement. 2. Left Posterior Lateral Back: Chest tube incision site. Site is sutured and appears approximated. No odor, scant yellow drainage. Periwound intact. Recommend: Cleanse site with normal saline. Gently pat dry. Apply Betadine to site. Allow Betadine to air dry. Cover site with foam dressing. Perform site care daily, and as needed for dressing soiling or dislodgment. 3. Right Posterior Lateral Back: Chest tube incision site. Site is sutured and appears approximated small open. Open area has 100% pink tissue. No odor, scant yellow drainage. Periwound intact. Recommend: Cleanse site with normal saline. Gently pat dry. Apply Betadine to site. Allow Betadine to air dry. Apply Hydrogel to open portion of site. Cover site with foam dressing. Perform site care daily, and as needed for dressing soiling or dislodgment. 4. Right Lateral Trunk: Multiple pink-colored areas, appears to be a rash. Recommend: Cleanse site with normal saline. Gently pat dry. Apply Calmoseptine cream to site. Perform site care daily and as needed for soiling. Also recommend: Reposition patient every 2 hours with pillow support and off-load pressure areas with pillows for pressure re-distribution. Offload, elevate and float bilateral heels with pillows. Perform skin care and monitor skin integrity Q shift. Use Calmoseptine cream on buttocks and other moisture susceptible areas QID and as needed for soiling. Place patient on a low air-loss mattress.
--- NOTE | 2022-04-03 14:34 | NUR ---
WOUND CARE PROVIDED WOUND CARE WITH RAG INSPECTOR. SEE [facility] SHIFT ASSESSMENT
--- NOTE | 2022-04-03 15:04 | NUR ---
GTUBE O RESIDUAL, FLUSHED FREELY. HUNG NEW BOTTLE OF NEPRO
[2022-04-03] MEDS: cefTRIAXone 1 GM in D5W 50 ML IV SCH (15:39)
[2022-04-03 16:00] VITALS: BP_SYST 143
[2022-04-03] MEDS ORDERED: MENTHOL/ZINC OXIDE 113 GM OINT. TP PRN (16:00)
--- NOTE | 2022-04-03 16:27 | NUR ---
Discharge Planning: [phone] DCP to follow up
--- NOTE | 2022-04-03 19:20 | NUR ---
CLOSING GAVE SBAR TO NIGHT NURSE, [facility] SETTING RUNNING ORDERED, PULSE OX ON 95% IV AND GTUBE RUNNING ORDERED/ BED IN LOW AND LOCK POSITION, CALL LIGHT WITHIN REACH
--- NOTE | 2022-04-03 19:20 | NUR ---
closing GAVE SBAR FROM NIGHT NURSE, [facility], CALL LIGHT WITHIN REACH, ENDORSED TO NIGHT NURSE THE NEED TO COLLECT FOR 2 SERIES OF OCCULT BLOOD STOOL. Addendum: 04/03/22 at 1937 by Ricarda Abreu RN CORRECTION: ENTERED IN IN THE WRONG CHART. PLEASE DISREGARD
[2022-04-03 20:04] VITALS: BP_SYST 156
[2022-04-04 02:22] VITALS: BP_SYST 130
[2022-04-04] MEDS: IPRATROPIUM/ALBUTEROL SULFATE 3 ML AMPUL.NEB (DUONEB) INH SCH ×6 (03:05→23:09)
[2022-04-04] MEDS: METOCLOPRAMIDE HCL 10 MG/2 ML VIAL IVP SCH ×4 (06:09→17:17)
--- NOTE | 2022-04-04 07:30 | NUR ---
OPENING NOTE Received report from plant operator/shift supervisor RN. Patient laying in bed calmly, tolerating mechanical ventilation and tube feeding. Call light within reach, all safety precautions observed. Patient non-verbal and non-cognitive at this time.
[2022-04-04 08:46] VITALS: BP_SYST 140
[2022-04-04] MEDS: DOCUSATE SODIUM 100 MG/10 ML UDC GT SCH (08:46)
[2022-04-04] MEDS: ENOXAPARIN SODIUM 40 MG/0.4 ML SYRINGE SUBCUT SCH (08:46)
[2022-04-04] MEDS: FAMOTIDINE PF 20 MG/2 ML VIAL IVP SCH ×2 (08:46→21:24)
[2022-04-04] MEDS: metroNIDAZOLE 500 mg/NS 100 ML IV SCH ×2 (08:47→21:24)
[2022-04-04] MEDS: CHOLECALCIFEROL (VITAMIN D3) 2,000 UNIT TABLET GT SCH (08:47)
[2022-04-04] MEDS: POTASSIUM CHLORIDE 20 MEQ/PKT PACKET GT SCH ×2 (08:47→21:23)
[2022-04-04] MEDS: levETIRAcetam 500 MG in NS 100 ML IV SCH ×2 (08:48→21:24)
--- NOTE | 2022-04-04 11:15 | NUR ---
MIDDAY OBSERVATION Patient laying in bed calmly. No obvious distress noted.
[2022-04-04 12:00] VITALS: BP_SYST 134
[2022-04-04] MEDS: SOD FERRIC GLUC COMPLEX/SUC 125 MG in NS 100 ML IV SCH (12:40)
[2022-04-04] MEDS: cefTRIAXone 1 GM in D5W 50 ML IV SCH (15:06)
[2022-04-04 16:00] VITALS: BP_SYST 144
--- NOTE | 2022-04-04 16:30 | NUR ---
CLOSING NOTE Patient laying in bed calmly. Tolerating tubefeeding and mechanical ventilation. All safety precautions observed. Addendum: 04/04/22 at 1901 by Lucio Alberto RN Time at 190
[2022-04-04 19:46] VITALS: BP_SYST 127
[2022-04-04] MEDS: KCL 40 mEq in D5W 1000 mL 1,000 ML IV SCH (20:29)
[2022-04-05 00:49] VITALS: BP_SYST 145
[2022-04-05] MEDS: IPRATROPIUM/ALBUTEROL SULFATE 3 ML AMPUL.NEB (DUONEB) INH SCH ×3 (05:03→12:10)
[2022-04-05] MEDS: KCL 40 mEq in D5W 1000 mL 1,000 ML IV SCH ×2 (05:55→16:00)
[2022-04-05] MEDS: METOCLOPRAMIDE HCL 10 MG/2 ML VIAL IVP SCH ×2 (05:57)
[2022-04-05 07:06] LABS: BASOPHILS # (AUTO) 0.1 K/uL (0.0-0.2); BASOPHILS % (AUTO) 0.7 % (0.0-2.0); EOSINOPHILS # (AUTO) 0.6 K/uL (0.0-0.4); EOSINOPHILS % (AUTO) 6.4 % (0.0-4.0); HEMATOCRIT 31.6 % (36-48); LYMPHOCYTES # (AUTO) 1.7 K/uL (1.0-5.5); LYMPHOCYTES % (AUTO) 18.6 % (20.5-51.5); MEAN CORPUSCULAR HEMOGLOBIN 24 pg (27-31); MEAN CORPUSCULAR HGB CONC 32 % (32-36); MEAN CORPUSCULAR VOLUME 76 fL (79.0-98.0); MONOCYTES # (AUTO) 0.9 K/uL (0.0-1.0); MONOCYTES % (AUTO) 9.9 % (1.7-9.3); NEUTROPHILS # (AUTO) 5.9 K/uL (1.8-7.7); NEUTROPHILS % (AUTO) 64.4 % (40.0-70.0); PLATELET COUNT (AUTO) 257 K/uL (130-430); RED BLOOD CELL COUNT(AUTO) 4.17 MIL/uL (4.2-6.2); RED CELL DISTRIBUTION WIDTH 19.9 % (9.0-15.0); WHITE BLOOD COUNT (AUTO) 9.2 K/uL (4.8-10.8)
--- NOTE | 2022-04-05 07:15 | NUR ---
OPENING NOTE Received report from psychologist research assistant RN. Upon entering room, patient laying in bed with no s/s of pain or discomfort. PICC line intact and patent, fluids ongoing, no s/s of infection. G tube is intact with no s/s of infection. Tracheostomy appears intact as well. Patient seems to be tolerating tube feed and mechanical ventilation at this time. Patient is non-verbal and non-cognitive at this time as well.
[2022-04-05 07:25] LABS: ALBUMIN 2.3 g/dL (3.4-4.8); CALCIUM 8.5 mg/dL (8.4-11.0); CREATININE 0.56 mg/dL (0.55-1.30); TOTAL BILIRUBIN 0.3 mg/dL (0.0-1.0)
[2022-04-05] MEDS: ENOXAPARIN SODIUM 40 MG/0.4 ML SYRINGE SUBCUT SCH (08:25)
[2022-04-05] MEDS: DOCUSATE SODIUM 100 MG/10 ML UDC GT SCH (08:26)
[2022-04-05] MEDS: POTASSIUM CHLORIDE 20 MEQ/PKT PACKET GT SCH (08:26)
[2022-04-05] MEDS: FAMOTIDINE PF 20 MG/2 ML VIAL IVP SCH ×2 (08:26→21:06)
[2022-04-05] MEDS: CHOLECALCIFEROL (VITAMIN D3) 2,000 UNIT TABLET GT SCH (08:26)
[2022-04-05] MEDS: levETIRAcetam 500 MG in NS 100 ML IV SCH ×2 (08:27→21:07)
[2022-04-05] MEDS: metroNIDAZOLE 500 mg/NS 100 ML IV SCH (08:28)
--- NOTE | 2022-04-05 10:16 | NUR ---
Discharge Planning: DCP arranged transport with [facility] [phone] CCT w/RT time request 3:00pm to [facility] [phone] Rm 210B. Nurse made aware and patient packet taken to nurse station.
[2022-04-05] MEDS ORDERED: FLUCONAZOLE 100 MG TABLET (DIFLUCAN) GT ONE (10:45)
--- NOTE | 2022-04-05 11:15 | NUR ---
MIDDAY OBSERVATION Patient remains calm in bed. Appears to be tolerating tube feed and mechanical ventilation at this time.
[2022-04-05] MEDS: METOCLOPRAMIDE HCL 10 MG TABLET GT SCH ×2 (11:17→18:20)
[2022-04-05] MEDS: CEFEPIME 2 GM in D5W 100 ML IV SCH (11:50)
[2022-04-05 12:00] VITALS: BP_SYST 132
[2022-04-05] MEDS ORDERED: VITD2000 GT (12:12)
[2022-04-05] MEDS ORDERED: PEPI20 IVP (12:12)
[2022-04-05] MEDS ORDERED: IPRA3AMP9 INH (12:12)
[2022-04-05] MEDS ORDERED: DIF100 GT (12:12)
[2022-04-05] MEDS ORDERED: LEVE750T4 PO (12:12)
[2022-04-05] MEDS ORDERED: METO-290 GT (12:12)
[2022-04-05 13:24] VITALS: BP_SYST 137
[2022-04-05] MEDS: VANCOMYCIN HCL 1,250 MG in NS 250 ML IV SCH (14:13)
[2022-04-05 14:33] VITALS: BP_SYST 137
--- NOTE | 2022-04-05 14:40 | NUR ---
DISCHARGE REPORT Called [facility] and gave report to Cedric Mandel RN.
--- NOTE | 2022-04-05 15:06 | NUR ---
SPOKE TO DAUGHTER Spoke with Chen Uriarte. Aware patient is being transferred this afternoon.
--- NOTE | 2022-04-05 15:58 | NUR ---
D/C Patient Patient given medication reconciliation form and D/C instructions. Exit Care provided. Spoke with Cedric JARAMILLO at [facility]. Gave report to [facility] unit #[id number]. Patient taken out in [facility] for discharge Patient in stable condition, ID band removed. IV lines disconnected from PICC line. Tube feeding was turned off and gastronomy tube was clamped. Carney catheter was emptied. Patient has no belongings. Addendum: 04/05/22 at 1929 by Lucio Alberto RN Patient had a tachypneic spell. Paramedics did not transport. Patient remains on unit.
[2022-04-05 16:10] VITALS: BP_SYST 137
--- NOTE | 2022-04-05 16:30 | NUR ---
Yoly RUFFIN: Spoke with Dr. Willams and informed him,patient became tachypneic and ambulance wont take her back.with orders give Vistaril 50mg per gtube now then Vistaril 25mg /g tube qid.
--- NOTE | 2022-04-05 16:55 | NUR ---
Called facility transfer: Spoke to Gayathri ,nursing supervisor concrete block plant of [facility] and aware that patient is on will call.
--- NOTE | 2022-04-05 18:30 | NUR ---
CALLED [facility]: SPOKE WITH EUSEBIO NURSE FROM [facility],OKAY TO TAKE PATIENT AROUND 11PM MONA.
--- NOTE | 2022-04-05 18:45 | NUR ---
[facility]: CALLED [facility] FOR WILL CALL ACTIVATED AND SPOKE WITH CHANELLE,PSYCHOLOGICAL OPERATIONS TIME AT 11PM MONA.
--- NOTE | 2022-04-05 19:29 | NUR ---
CLOSING NOTE Gave report to electrical engineering technician RN. Patient remains laying in bed. No s/s of pain or discomfort. Safety precautions observed. PICC site intact. Tolerating tube feeding and ventilation.
[2022-04-05 20:15] VITALS: BP_SYST 143
--- NOTE | 2022-04-05 22:21 | NUR ---
Yoly Willams s/meaghan Robbins
[2022-04-06] MEDS: CEFEPIME 2 GM in D5W 100 ML IV SCH ×2 (00:29→12:16)
[2022-04-06] MEDS: METOCLOPRAMIDE HCL 10 MG TABLET GT SCH ×4 (00:29→18:04)
[2022-04-06] MEDS: KCL 40 mEq in D5W 1000 mL 1,000 ML IV SCH ×3 (02:07→21:07)
[2022-04-06] MEDS: VANCOMYCIN HCL 1,250 MG in NS 250 ML IV SCH ×2 (02:07→14:45)
[2022-04-06 02:12] VITALS: BP_SYST 127
[2022-04-06 06:57] LABS: BASOPHILS # (AUTO) 0.1 K/uL (0.0-0.2); BASOPHILS % (AUTO) 0.6 % (0.0-2.0); EOSINOPHILS # (AUTO) 0.7 K/uL (0.0-0.4); EOSINOPHILS % (AUTO) 6.5 % (0.0-4.0); HEMATOCRIT 33.8 % (36-48); HEMOGLOBIN 10.7 g/dL (12.0-16.0); LYMPHOCYTES # (AUTO) 2.7 K/uL (1.0-5.5); LYMPHOCYTES % (AUTO) 24.5 % (20.5-51.5); MEAN CORPUSCULAR HEMOGLOBIN 24 pg (27-31); MEAN CORPUSCULAR HGB CONC 32 % (32-36); MEAN CORPUSCULAR VOLUME 76 fL (79.0-98.0); MONOCYTES # (AUTO) 1.1 K/uL (0.0-1.0); MONOCYTES % (AUTO) 10.2 % (1.7-9.3); NEUTROPHILS # (AUTO) 6.5 K/uL (1.8-7.7); NEUTROPHILS % (AUTO) 58.2 % (40.0-70.0); PLATELET COUNT (AUTO) 304 K/uL (130-430); RED BLOOD CELL COUNT(AUTO) 4.46 MIL/uL (4.2-6.2); RED CELL DISTRIBUTION WIDTH 19.9 % (9.0-15.0); WHITE BLOOD COUNT (AUTO) 11.2 K/uL (4.8-10.8)
[2022-04-06 07:15] LABS: CREATININE 0.73 mg/dL (0.55-1.30)
[2022-04-06] MEDS: IPRATROPIUM/ALBUTEROL SULFATE 3 ML AMPUL.NEB (DUONEB) INH SCH ×5 (07:15→23:08)
[2022-04-06 08:00] VITALS: BP_SYST 138
[2022-04-06] MEDS: FLUCONAZOLE 100 MG TABLET (DIFLUCAN) GT SCH (09:57)
[2022-04-06] MEDS: DOCUSATE SODIUM 100 MG/10 ML UDC GT SCH (09:57)
[2022-04-06] MEDS: CHOLECALCIFEROL (VITAMIN D3) 2,000 UNIT TABLET GT SCH (09:57)
[2022-04-06] MEDS: POTASSIUM CHLORIDE 20 MEQ/PKT PACKET GT SCH (09:58)
[2022-04-06] MEDS: FAMOTIDINE PF 20 MG/2 ML VIAL IVP SCH ×2 (09:58→21:05)
[2022-04-06] MEDS: ENOXAPARIN SODIUM 40 MG/0.4 ML SYRINGE SUBCUT SCH (09:59)
[2022-04-06] MEDS: levETIRAcetam 500 MG in NS 100 ML IV SCH ×2 (10:30→21:05)
[2022-04-06] MEDS: METOPROLOL TARTRATE 25 MG TABLET PO SCH ×2 (14:51→22:01)
[2022-04-06 18:28] VITALS: BP_SYST 139
[2022-04-06 18:29] VITALS: BP_SYST 139
[2022-04-06 20:03] VITALS: BP_SYST 136
[2022-04-07] VITALS (7 sets, daily range): BP systolic 120–134
[2022-04-07] MEDS: VANCOMYCIN HCL 1,250 MG in NS 250 ML IV SCH (02:05)
[2022-04-07] MEDS: IPRATROPIUM/ALBUTEROL SULFATE 3 ML AMPUL.NEB (DUONEB) INH SCH ×6 (02:45→23:59)
[2022-04-07] MEDS: METOPROLOL TARTRATE 25 MG TABLET PO SCH ×3 (05:36→22:31)
[2022-04-07] MEDS: METOCLOPRAMIDE HCL 10 MG TABLET GT SCH ×5 (05:38→23:50)
[2022-04-07 07:19] LABS: CALCIUM 8.9 mg/dL (8.4-11.0); CREATININE 0.6 mg/dL (0.55-1.30)
[2022-04-07 07:32] LABS: BASOPHILS # (AUTO) 0.1 K/uL (0.0-0.2); BASOPHILS % (AUTO) 0.6 % (0.0-2.0); EOSINOPHILS # (AUTO) 0.7 K/uL (0.0-0.4); EOSINOPHILS % (AUTO) 7.3 % (0.0-4.0); HEMATOCRIT 31.3 % (36-48); LYMPHOCYTES # (AUTO) 1.9 K/uL (1.0-5.5); LYMPHOCYTES % (AUTO) 18.5 % (20.5-51.5); MEAN CORPUSCULAR HEMOGLOBIN 24 pg (27-31); MEAN CORPUSCULAR HGB CONC 32 % (32-36); MEAN CORPUSCULAR VOLUME 76 fL (79.0-98.0); MONOCYTES % (AUTO) 9.8 % (1.7-9.3); NEUTROPHILS # (AUTO) 6.5 K/uL (1.8-7.7); NEUTROPHILS % (AUTO) 63.8 % (40.0-70.0); PLATELET COUNT (AUTO) 250 K/uL (130-430); RED BLOOD CELL COUNT(AUTO) 4.12 MIL/uL (4.2-6.2); RED CELL DISTRIBUTION WIDTH 20.4 % (9.0-15.0); WHITE BLOOD COUNT (AUTO) 10.1 K/uL (4.8-10.8)
--- NOTE | 2022-04-07 07:40 | NUR ---
rn opening note Report was endorsed by night nurse. patient is sitting up in bed.patient shows no signs of any distress. patient has all safety precautions in place. no other needs at this time.
[2022-04-07] MEDS ORDERED: FUROSEMIDE 40 MG/4 ML VIAL IVP ONE (09:30)
[2022-04-07] MEDS: POTASSIUM CHLORIDE 20 MEQ/PKT PACKET GT SCH (10:18)
[2022-04-07] MEDS: FLUCONAZOLE 100 MG TABLET (DIFLUCAN) GT SCH (10:18)
[2022-04-07] MEDS: FAMOTIDINE PF 20 MG/2 ML VIAL IVP SCH ×2 (10:18→21:29)
[2022-04-07] MEDS: DOCUSATE SODIUM 100 MG/10 ML UDC GT SCH (10:18)
[2022-04-07] MEDS: CHOLECALCIFEROL (VITAMIN D3) 2,000 UNIT TABLET GT SCH (10:18)
[2022-04-07] MEDS: ENOXAPARIN SODIUM 40 MG/0.4 ML SYRINGE SUBCUT SCH (10:19)
[2022-04-07] MEDS: levETIRAcetam 500 MG in NS 100 ML IV SCH ×2 (10:28→21:29)
[2022-04-07] MEDS: KCL 40 mEq in D5W 1000 mL 1,000 ML IV SCH (10:30)
[2022-04-07] MEDS: CEFEPIME 2 GM in D5W 100 ML IV SCH ×4 (12:48→23:50)
--- NOTE | 2022-04-07 12:51 | NUR ---
medication patients scheduled medication given per order. patient is sitting in bed with eyes closed no signs of any distress, breathing is equal and non labored. patient has all safety precautions in place. no other needs at this time.
[2022-04-07] MEDS ORDERED: METO25TA6 PO (13:11)
[2022-04-07] MEDS: VANCOMYCIN HCL 1,000 MG in NS 250 ML IV SCH (14:03)
--- NOTE | 2022-04-07 16:12 | NUR ---
CALL THE CAR ,THE TRANSPORT SERVICE WAS CALLED TO ARRANGE CCT-RT AMBULANCE TO [facility], RM 210B. SPOKE TO FAYE AND WAS GIVEN REF # [id number], PROOF OF AMBULANCE SERVICE.
--- NOTE | 2022-04-07 17:19 | NUR ---
[facility] CALLED AND THE AMBULANCE THAT WILL TRANSPORT PT TO [facility] IS [facility] CCT -RT. PUBLIC RELATIONS CONSULTANT TIME IS 2029. SPOKE TO ABRAHAM.
--- NOTE | 2022-04-07 17:50 | NUR ---
HIGH ALERT NOTE: Called Dr. salamanca back at phone identified within the medical roster to verify physician authenticity. orders obtained for medication
--- NOTE | 2022-04-07 19:28 | NUR ---
rn closing note report was endorsed to night nurser jovanny. patient provided with incontinence care by solution specialist. patient shows no signs of any distress, breathing is equal and non labored. patient has paredes draining to gravity.no other needs at this time. medicated for anxiety prior to discharge. called and gave report to facility, called daughter to inform of transfer.endorsed pictures to be done prior to discharge.
[2022-04-07] MEDS ORDERED: LORazepam 2 MG/ML VIAL IVP ONE (20:00)
[2022-04-08 00:24] VITALS: BP_SYST 110
[2022-04-08] MEDS: KCL 40 mEq in D5W 1000 mL 1,000 ML IV SCH ×2 (01:00→08:59)
[2022-04-08] MEDS: VANCOMYCIN HCL 1,000 MG in NS 250 ML IV SCH ×3 (02:00→22:01)
[2022-04-08] MEDS: IPRATROPIUM/ALBUTEROL SULFATE 3 ML AMPUL.NEB (DUONEB) INH SCH ×7 (03:55→23:35)
[2022-04-08] MEDS: METOCLOPRAMIDE HCL 10 MG TABLET GT SCH ×3 (06:05→17:34)
[2022-04-08] MEDS: METOPROLOL TARTRATE 25 MG TABLET PO SCH ×3 (06:09→22:02)
--- NOTE | 2022-04-08 07:15 | NUR ---
OPENING NOTE Received report from shift supervisor melting RN. Upon entering room, patient was in bed sleeping calmly. Tolerating tube feeding and mechanical ventilation well. She does not show obvious s/s of pain or discomfort. Patient is non-verbal at this time and thus cannot communicate. PICC site is patent with fluids ongoing, no s/s of infection. PICC dressing is dry and intact. Call light within reach. All safety precautions observed.
[2022-04-08 08:00] VITALS: BP_SYST 133
[2022-04-08] MEDS: levETIRAcetam 500 MG in NS 100 ML IV SCH (08:46)
[2022-04-08] MEDS: FAMOTIDINE PF 20 MG/2 ML VIAL IVP SCH ×2 (08:47→22:01)
[2022-04-08] MEDS: FLUCONAZOLE 100 MG TABLET (DIFLUCAN) GT SCH (08:47)
[2022-04-08] MEDS: ENOXAPARIN SODIUM 40 MG/0.4 ML SYRINGE SUBCUT SCH (08:47)
[2022-04-08] MEDS: CHOLECALCIFEROL (VITAMIN D3) 2,000 UNIT TABLET GT SCH (08:48)
[2022-04-08] MEDS: POTASSIUM CHLORIDE 20 MEQ/PKT PACKET GT SCH (08:48)
[2022-04-08] MEDS: DOCUSATE SODIUM 100 MG/10 ML UDC GT SCH (08:50)
[2022-04-08] MEDS ORDERED: FUROSEMIDE 40 MG/4 ML VIAL IVP ONE (09:00)
--- NOTE | 2022-04-08 11:30 | NUR ---
MIDDAY OBSERVATION Patient remains calm in bed. She does not show s/s of pain or discomfort. No notable residual from tube feeding. PICC remains intact with a dry, intact dressing. All safety precautions observed.
[2022-04-08 12:12] VITALS: BP_SYST 144
[2022-04-08] MEDS: CEFEPIME 2 GM in D5W 100 ML IV SCH (12:25)
--- NOTE | 2022-04-08 14:30 | NUR ---
WOUND CARE Skin tear on left buttock was treated with hydrogel and covered with foam dressing.
--- NOTE | 2022-04-08 15:15 | NUR ---
AFTERNOON OBSERVATION Patient laying calmly in bed. Tolerating tube feeding and mechanical ventilation well. No residual from gastronomy tube. No s/s pain or discomfort at this time. Continue to monitor.
[2022-04-08] MEDS ORDERED: LevETIRAcetam 500 MG/5 ML UDC ORAL LIQUID GT ONE (16:00)
[2022-04-08 16:12] VITALS: BP_SYST 137
--- NOTE | 2022-04-08 18:58 | NUR ---
CLOSING NOTE Patient remains laying in bed calmly. No s/s of pain or discomfort noted. Continues to tolerate tube feed and mechanical ventilation well. PICC site is intact, PICC is patent, dressing is intact, no s/s of infection. All safety precautions observed. Will endorse to cigarette packer RN.
[2022-04-08 20:35] VITALS: BP_SYST 125
[2022-04-08 20:50] VITALS: BP_SYST 129
[2022-04-08] MEDS: LevETIRAcetam 500 MG/5 ML UDC ORAL LIQUID GT SCH (22:01)
[2022-04-09] VITALS (8 sets, daily range): BP systolic 111–127
[2022-04-09] MEDS: METOCLOPRAMIDE HCL 10 MG TABLET GT SCH ×4 (01:00→17:34)
[2022-04-09] MEDS: CEFEPIME 2 GM in D5W 100 ML IV SCH ×2 (01:00→12:00)
[2022-04-09] MEDS: KCL 40 mEq in D5W 1000 mL 1,000 ML IV SCH ×2 (01:02→14:14)
[2022-04-09] MEDS: IPRATROPIUM/ALBUTEROL SULFATE 3 ML AMPUL.NEB (DUONEB) INH SCH ×4 (03:40→15:24)
[2022-04-09] MEDS: METOPROLOL TARTRATE 25 MG TABLET PO SCH ×2 (06:03→14:11)
--- NOTE | 2022-04-09 07:25 | NUR ---
OPENING NOTE Received report from night shift manager RN. Upon entering room, patient sleeping calmly in bed. No obvious s/s of pain or discomfort. PICC site intact, clean, and dry, fluids ongoing. G tube intact, clean, and dry. Tube feeding ongoing. Appears to be tolerating mechanical ventilation.
[2022-04-09 07:36] LABS: BASOPHILS % (AUTO) 0.4 % (0.0-2.0); EOSINOPHILS # (AUTO) 0.7 K/uL (0.0-0.4); EOSINOPHILS % (AUTO) 8.4 % (0.0-4.0); HEMATOCRIT 32.6 % (36-48); HEMOGLOBIN 10.6 g/dL (12.0-16.0); MEAN CORPUSCULAR HEMOGLOBIN 24 pg (27-31); MEAN CORPUSCULAR HGB CONC 32 % (32-36); MEAN CORPUSCULAR VOLUME 75 fL (79.0-98.0); MONOCYTES # (AUTO) 0.8 K/uL (0.0-1.0); MONOCYTES % (AUTO) 9.3 % (1.7-9.3); NEUTROPHILS # (AUTO) 5.2 K/uL (1.8-7.7); NEUTROPHILS % (AUTO) 58.9 % (40.0-70.0); PLATELET COUNT (AUTO) 247 K/uL (130-430); RED BLOOD CELL COUNT(AUTO) 4.35 MIL/uL (4.2-6.2); RED CELL DISTRIBUTION WIDTH 21.5 % (9.0-15.0); WHITE BLOOD COUNT (AUTO) 8.9 K/uL (4.8-10.8)
[2022-04-09 07:46] LABS: ALBUMIN 2.3 g/dL (3.4-4.8); CALCIUM 9.8 mg/dL (8.4-11.0); CREATININE 0.78 mg/dL (0.55-1.30); TOTAL BILIRUBIN 0.3 mg/dL (0.0-1.0)
[2022-04-09] MEDS: POTASSIUM CHLORIDE 20 MEQ/PKT PACKET GT SCH (10:27)
[2022-04-09] MEDS: ENOXAPARIN SODIUM 40 MG/0.4 ML SYRINGE SUBCUT SCH (10:27)
[2022-04-09] MEDS: FAMOTIDINE PF 20 MG/2 ML VIAL IVP SCH (10:28)
[2022-04-09] MEDS: CHOLECALCIFEROL (VITAMIN D3) 2,000 UNIT TABLET GT SCH (10:28)
[2022-04-09] MEDS: DOCUSATE SODIUM 100 MG/10 ML UDC GT SCH (10:29)
[2022-04-09] MEDS: FLUCONAZOLE 100 MG TABLET (DIFLUCAN) GT SCH (10:29)
[2022-04-09] MEDS: VANCOMYCIN HCL 1,000 MG in NS 250 ML IV SCH (10:30)
[2022-04-09] MEDS: LevETIRAcetam 500 MG/5 ML UDC ORAL LIQUID GT SCH (10:36)
--- NOTE | 2022-04-09 11:30 | NUR ---
TOLERATING TUBE FEEDING No residual from gastronomy tube. Site dressing changed. Patient tolerating well.
[2022-04-09] MEDS ORDERED: HYDR10SY12 GT (11:47)
--- NOTE | 2022-04-09 15:19 | NUR ---
DISCHARGE to [facility] Called [facility], spoke to Cedric Fairbanks, he said room is available. Addendum: 04/09/22 at 1544 by Lucio Alberto RN Patient room 210-B at [facility]. Receiving Dr. Hernandez. RN name
--- NOTE | 2022-04-09 15:39 | NUR ---
DISCHARGE TRANSPORTATION Spoke to Lovely with [facility]. She states that pick may be possible at 1800. Addendum: 04/09/22 at 1543 by Lucio Alberto RN Transport number [facility]: [phone]. Waiting for pickup time. Confirmation number #[id number] given by Lovely.
--- NOTE | 2022-04-09 18:14 | NUR ---
DISCHARGE TO [facility] Transfer packets given to [facility] Unit #[id number]. Exit care provided. Right upper arm PICC line remains intact, clean, and dry. Patient is discharged with Carney catheter as ordered. Gastronomy tube clamped. Patient is discharged with tracheostomy and mechanical ventilation. Patient is transported with CCT w/ RT. Patient in stable condition. Will go to [facility].
== END 2022-04-09 18:00 | DRG 207 ==
LOC: SED 06:09 → SIC 10:37 → STU 03-31 20:10
PROVIDERS: ADMIT Internal Medicine; ATTEND Internal Medicine
PROC: 5A12012 Performance of Cardiac Output, Single, Manual (ICD-10-PCS; principal; 2022-03-14)
PROC: 0W9B30Z Drainage of Left Pleural Cavity with Drainage Device, Percutaneous Approach (ICD-10-PCS; 2022-03-14)
PROC: 5A1955Z Respiratory Ventilation, Greater than 96 Consecutive Hours (ICD-10-PCS; 2022-03-14)
PROC: 0W9930Z Drainage of Right Pleural Cavity with Drainage Device, Percutaneous Approach (ICD-10-PCS; 2022-03-14)
PROC: 02HV33Z Insertion of Infusion Device into Superior Vena Cava, Percutaneous Approach (ICD-10-PCS; 2022-03-14)
PROC: B548ZZA Ultrasonography of Superior Vena Cava, Guidance (ICD-10-PCS; 2022-03-14)
PROC: 4A00X4Z Measurement of Central Nervous Electrical Activity, External Approach (ICD-10-PCS; 2022-03-21)
PROC: 4A00X4Z Measurement of Central Nervous Electrical Activity, External Approach (ICD-10-PCS; 2022-03-27)
PROC: 4A00X4Z Measurement of Central Nervous Electrical Activity, External Approach (ICD-10-PCS; 2022-04-03)
DX: J18.9 Pneumonia, unspecified organism (principal); J96.21 Acute and chronic respiratory failure with hypoxia; S72.002A Fracture of unspecified part of neck of left femur, initial encounter for closed fracture; I21.A1 Myocardial infarction type 2; G93.41 Metabolic encephalopathy; I46.9 Cardiac arrest, cause unspecified; S22.49XA Multiple fractures of ribs, unspecified side, initial encounter for closed fracture; J93.83 Other pneumothorax; E44.1 Mild protein-calorie malnutrition; J44.0 Chronic obstructive pulmonary disease with (acute) lower respiratory infection; Z99.11 Dependence on respirator [ventilator] status; G93.1 Anoxic brain damage, not elsewhere classified; J44.1 Chronic obstructive pulmonary disease with (acute) exacerbation; E78.5 Hyperlipidemia, unspecified; E66.9 Obesity, unspecified; G40.909 Epilepsy, unspecified, not intractable, without status epilepticus; Z20.822 Contact with and (suspected) exposure to COVID-19; I25.10 Atherosclerotic heart disease of native coronary artery without angina pectoris; W18.39XA Other fall on same level, initial encounter; E87.6 Hypokalemia; R13.10 Dysphagia, unspecified; F25.9 Schizoaffective disorder, unspecified; Z96.611 Presence of right artificial shoulder joint; Z93.0 Tracheostomy status; Z93.1 Gastrostomy status; Z87.891 Personal history of nicotine dependence; Z87.828 Personal history of other (healed) physical injury and trauma; Z79.52 Long term (current) use of systemic steroids; Z68.36 Body mass index [BMI] 36.0-36.9, adult; Y93.89 Activity, other specified; Y92.89 Other specified places as the place of occurrence of the external cause; Y99.8 Other external cause status; Z74.01 Bed confinement status; Y95 Nosocomial condition
CPT/HCPCS: 36415; 36600; 70450-TC; 71045; 71275; 74018; 76376; 76700-TC; 80048; 80053; 80202; 81000; 82140; 82607; 82746; 82803-TC; 83540; 83550; 83605; 83735; 83880; 84100; 84443; 84484; 85025; 85379; 85610-TC; 85730-TC; 87040; 87070-TC; 87081; 87086; 87186-TC; 87205-TC; 92950; 93005; 93306; 93971; 94002; 94003; 94640; 94668; 94760; 95816; 96365; 96367; 96375; 99291; C1751; G0378; J0456; J0692; J0696; J1030; J1200; J1650; J1940; J1953; J2001; J2060; J2270; J2543; J2704; J2765; J2916; J3370; J3475; J3480; J3490; J7030; J7050; J7060; J7120; J7613; J8597; Q9967